=== PATIENT | female | born 1990 | race Caucasian/White ===

== ENCOUNTER 2020-08-20 16:24 | Outpatient (REF) | payer OTHER, SELFPAY | END 2020-08-20 16:25 | disposition home or self-care (01) | LOC: HO.LNP 16:24 | PROVIDERS: Visit Provider Hospitalist | DX: R30.0 Dysuria (principal) | CPT/HCPCS: 87086 ==

== ENCOUNTER 2021-04-30 12:46 | Outpatient (REF) | payer OTHER, SELFPAY | END 2021-04-30 12:47 | disposition home or self-care (01) | LOC: HO.LNP 12:46 | PROVIDERS: Visit Provider Physician Assistant Medical | DX: R30.0 Dysuria (principal) | CPT/HCPCS: 87086 ==

== ENCOUNTER 2021-05-01 11:12 | Outpatient (REF) | payer OTHER, SELFPAY | END 2021-05-01 11:13 | disposition home or self-care (01) | LOC: HO.LNP 11:12 | PROVIDERS: Visit Provider Physician Assistant Medical | DX: Z13.89 Encounter for screening for other disorder (principal) ==

== ENCOUNTER 2021-07-02 11:31 | Outpatient (REF) | payer OTHER, SELFPAY ==
[2021-07-02 13:49] LABS: MANUAL DIFF FLAG NO
[2021-07-02 13:53] LABS: Basophils Percent Auto 0.5 % (0-2); Eosinophils Absolute Auto 0.1 X10*3/uL (0.0-0.4); Eosinophils Percent Auto 2.3 % (0-4); Hematocrit 39.2 % (37.0-47.0); Hemoglobin 12.6 g/dl (12.0-16.0); Imm Gran Abs Auto 0.01 X10*3/uL (0.00-0.03); Imm Gran Pct Auto 0.2 % (0.0-0.4); Lymphocytes Absolute Auto 1.6 X10*3/uL (1.2-4.9); Lymphocytes Percent Auto 25.9 % (20-40); Mean Corpuscular HGB Conc 32.1 g/dl (31.0-35.0); Mean Corpuscular Volume 90.3 fL (80.0-98.0); Mean Platelet Volume 10.9 fL (9.4-12.3); Monocytes Absolute Auto 0.4 X10*3/uL (0.1-1.2); Monocytes Percent Auto 6.3 % (2-11); Neutrophils Percent Auto 64.8 % (45-73); Platelet Count 252 X10*3/uL (160-400); Red Blood Count 4.34 X10*6/uL (4.20-5.50); Red Cell Distribution Width 12.6 % (11.0-16.0); White Blood Count 6.2 X10*3/uL (4.8-10.8)
[2021-07-02 14:20] LABS: Alanine Aminotransferase 8 U/L (0-31); Albumin Level 4.4 g/dL (3.5-5.0); Alkaline Phosphatase 35 U/L (39-117); Anion Gap 13 (12-20); Aspartate Amino Transferase 17 U/L (5-31); Bilirubin Total 0.5 mg/dL (0.0-1.0); Blood Urea Nitrogen 8 mg/dL (9-16); Calcium 9.7 mg/dL (8.4-10.2); Carbon Dioxide 25 mmol/L (22-29); Chloride 103 mmol/L (96-108); Cholesterol 222 mg/dL; Estimated Glomerular Filt Rate > 60; Glucose Fasting 92 mg/dL (60-99); HDL Cholesterol 63 mg/dL; LDL Cholesterol Calculated 129 mg/dl; Potassium 4.1 mmol/L (3.3-5.1); Sodium 137 mmol/L (135-145); Total Protein 7.2 g/dL (6.5-8.0); Triglycerides 151 mg/dL
[2021-07-02 14:28] LABS: TSH reflex Free T4 2.96 uIU/mL (0.32-4.0)
== END 2021-07-02 11:32 | disposition home or self-care (01) ==
LOC: HO.HMGCLDS 11:31
PROVIDERS: Visit Provider Internal Medicine
DX: F32.2 Major depressive disorder, single episode, severe without psychotic features (principal); F41.1 Generalized anxiety disorder; R30.0 Dysuria; R35.0 Frequency of micturition
CPT/HCPCS: 36415; 80053; 80061; 84443; 85025

== ENCOUNTER 2021-07-08 21:07 | Emergency (ER) | payer OTHER, SELFPAY ==
[2021-07-08 21:20] VITALS: BP 167/98; PULSE 88; RESP 16; TEMP 36.7; O2SAT 99; BMI 23.7
--- NOTE | 2021-07-08 22:32 | ED_ITS ---
HPI - Female Genitourinary General Chief complaint: Urogenital-Female Stated complaint: ? bladder hernia Time Seen by Provider: 07/08/21 22:32 History of Present Illness HPI Narrative: Patient complains of frequent urge to urinate and a feel like her bladder cannot empty for many weeks and multiple visits to her doctor and previous treatments with Bactrim and Macrobid, her doctor recently started Related Data Previous Rx's Medication Instructions Recorded lamotrigine 50 mg tablet,extended 25 mg PO DAILY 30 Days #30 tab 07/02/21 release 24 hr tolterodine 2 mg tablet (Detrol) 2 mg PO BEDTIME 30 Days #30 tab 07/02/21 Allergies Allergy/AdvReac Type Severity Reaction Status Date / Time No Known Allergies Allergy Verified 07/08/21 21:25 [No Known Allergies*] Review of Systems Verdana 4l Review of Systems: Verdana 4d Verdana 4d Positives are constant feeling of need to void for several months negatives are no fever no chills no dizziness no weakness no loss of appetite no abdominal pain no nausea vomiting or diarrhea no blood in the urine no diarrhea no back painpain no rash no leg swelling Yes all other systems are reviewed and are negative PMFSH Past Medical History Source: nursing notes reviewed Medical History Major depressive disorder, severe Surgical History No pertinent past surgical history Family History Family History Father Depression Mother History of blood clots Maternal Grandmother No problems noted. Maternal Grandfather Diabetes mellitus CVD (cardiovascular disease) Paternal Grandmother No problems noted. 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 Physical Exam Verdana 4l Vital Signs: Verdana 4d Verdana 4d Vital Signs: Verdana 4d Verdana 4Bd Last Vital Signs Verdana 4d Medical Esthetician New 4d Medical Esthetician New 4d Temp 98.1 F 07/08/21 21:20 Medical Esthetician New 4d Pulse 88 07/08/21 21:20 Medical Esthetician New 4d Resp 16 07/08/21 21:20 BP 167/98 H 07/08/21 21:20 Pulse Ox 99 07/08/21 21:20 BMI result Body Mass Index 23.7 General appearance no acute distress The eyes no redness or discharge The pharynx no redness swelling or exudate, well hydrated Neck is supple Respiratory no distress Abdomen is soft and nontender The back no CVA tenderness The extremities full range of motion x4 Course Course Course Narrative: Patient was started on Detrol 3 days ago for these symptoms which have been going on for some time and have been evaluated by primary doctor who did refer to urologist She comes today as the symptoms continue unchanged She did not want a urinalysis as she said it is was just done a couple days ago and nothing is different and she would not provide a urine sample We did a postvoid residual as she constantly feels like she has to urinate and it was 32 mL so no evidence of urinary retention This was discussed with the patient that there is no additional acute treatment we could provide now she is advised she could return any time if she wants to provide a urinalysis to confirm that no infection has developed in the last few days and right now she wanted to go home so she was discharged, well-appearing and not in any acute distress Discharge Plan Discharge Clinical Impression: Dysuria Patient Disposition: Home, Self-Care Additional Instructions: Which checked to see if you are retaining urine and you were not retaining urine, the test was normal You recently checked for a urine infection and did not want us to repeat that here today so we did not check a urinalysis today Her doctor started Detrol which is a medicine that is used for bladder symptoms and hopefully it will be helpful Follow with urologist as referred by your doctor Return any time if worse Prescriptions: No Action lamotrigine 50 mg tablet extended release 24hr 25 mg PO DAILY 30 Days Qty: 30 0RF Rx Instructions: Half a tablet for 3 days and then full tablet tolterodine [Detrol] 2 mg tablet 2 mg PO BEDTIME 30 Days Qty: 30 0RF Interventions: ED Discharge Assessment Last Done: 07/08/21 23:37
== END 2021-07-08 23:40 | disposition home or self-care (01) ==
PROVIDERS: Emergency Provider Internal Medicine; PCP Internal Medicine
DX: R30.0 Dysuria (principal)
CPT/HCPCS: 51798; 99283; 99284

== ENCOUNTER 2021-08-22 13:14 | Outpatient (REF) | payer OTHER, SELFPAY ==
[2021-08-23 09:45] LABS: BV Int Neg Control Negative (Negative); BV Int Pos Control Positive (Positive)
[2021-08-23 09:47] LABS: CT PCR NOT DETECTED (Not Detect.); NG PCR NOT DETECTED (Not Detect.)
[2021-08-24 16:01] LABS: HPV mRNA E6/E7 rflx Not Detected (Not Detected)
== END 2021-08-22 13:15 | disposition home or self-care (01) ==
LOC: HO.LAB 13:14
PROVIDERS: Visit Provider Advanced Practice Midwife
DX: Z12.4 Encounter for screening for malignant neoplasm of cervix (principal); Z11.51 Encounter for screening for human papillomavirus (HPV); R35.0 Frequency of micturition; Z20.2 Contact with and (suspected) exposure to infections with a predominantly sexual mode of transmission
CPT/HCPCS: 87480; 87491; 87510; 87591; 87624; 87660; 88142

== ENCOUNTER 2022-09-16 11:25 | Outpatient (REF) | payer OTHER, SELFPAY ==
[2022-09-16 13:53] LABS: MANUAL DIFF FLAG NO
[2022-09-16 14:06] LABS: Basophils Percent Auto 0.3 % (0-2); Eosinophils Absolute Auto 0.1 X10*3/uL (0.0-0.4); Eosinophils Percent Auto 1.6 % (0-4); Hematocrit 40.7 % (37.0-47.0); Hemoglobin 13.4 g/dl (12.0-16.0); Imm Gran Abs Auto 0.04 X10*3/uL (0.00-0.03); Imm Gran Pct Auto 0.5 % (0.0-0.4); Lymphocytes Percent Auto 23.5 % (20-40); Mean Corpuscular HGB Conc 32.9 g/dl (31.0-35.0); Mean Corpuscular Hemoglobin 30.4 pg (27.0-33.0); Mean Corpuscular Volume 92.3 fL (80.0-98.0); Mean Platelet Volume 10.5 fL (9.4-12.3); Monocytes Absolute Auto 0.5 X10*3/uL (0.1-1.2); Monocytes Percent Auto 5.6 % (2-11); Neutrophils Absolute Auto 5.9 x10*3/uL (2.0-8.3); Neutrophils Percent Auto 68.5 % (45-73); Platelet Count 245 X10*3/uL (160-400); Red Blood Count 4.41 X10*6/uL (4.20-5.50); Red Cell Distribution Width 13.8 % (11.0-16.0); White Blood Count 8.6 X10*3/uL (4.8-10.8)
[2022-09-16 14:08] LABS: Appearance Urine Cloudy; Color Urine Yellow; Glucose Urine UA Negative (Negative); Leukocyte Esterase Urine Large (3+) (Negative); Nitrite Urine Negative (Negative); UMIC TRIGGER UACC YES; Urine Blood Negative (Negative); Urine Ketones Negative (Negative); Urine Protein Negative (Neg-Trace)
[2022-09-16 14:13] LABS: Bacteria Urine 2+ (None Seen); Hyaline Casts Urine 0-2 /LPF (0-2); UACC Culture Trigger YES; WBC Urine 21-50 /HPF (0-5)
[2022-09-16 14:40] LABS: Alanine Aminotransferase 32 U/L (0-31); Albumin Level 4.6 g/dL (3.5-5.0); Alkaline Phosphatase 47 U/L (39-117); Anion Gap 16 (12-20); Aspartate Amino Transferase 56 U/L (5-31); Bilirubin Total 0.7 mg/dL (0.0-1.0); Blood Urea Nitrogen 8 mg/dL (9-16); Calcium 9.5 mg/dL (8.4-10.2); Carbon Dioxide 26 mmol/L (22-29); Chloride 101 mmol/L (96-108); Cholesterol 218 mg/dL; Estimated Glomerular Filt Rate > 60; Glucose Fasting 94 mg/dL (60-99); HDL Cholesterol 83 mg/dL; LDL Cholesterol Calculated 97 mg/dl; Potassium 3.7 mmol/L (3.3-5.1); Sodium 139 mmol/L (135-145); Total Protein 6.9 g/dL (6.5-8.0); Triglycerides 190 mg/dL
[2022-09-16 14:59] LABS: TSH reflex Free T4 2.05 uIU/mL (0.32-4.0)
== END 2022-09-16 11:26 | disposition home or self-care (01) ==
LOC: HO.HMGCLDS 11:25
PROVIDERS: PCP Internal Medicine; Visit Provider Internal Medicine
DX: Z00.01 Encounter for general adult medical examination with abnormal findings (principal); H60.91 Unspecified otitis externa, right ear; F41.1 Generalized anxiety disorder; F32.2 Major depressive disorder, single episode, severe without psychotic features
CPT/HCPCS: 36415; 80053; 80061; 81001; 84443; 85025; 87086

== ENCOUNTER 2023-02-10 13:44 | Outpatient (AMB) | payer OTHER, SELFPAY ==
[2023-02-10 13:48] VITALS: BP 130/70; PULSE 111; O2SAT 97; BMI 20.4
--- NOTE | 2023-02-10 13:48 | MHC.PC.OV ---
Vital Signs 02/10/23 13:48 Height 5 ft 6 in Weight 126 lb 8 oz BMI 20.4 BP 130/70 Blood Pressure Location Rt brachial Position Sitting Pulse 111 H Pulse Source Pulse Oximeter Pulse Oximetry (%) 97 Oxygen Delivery Method Room Air Intake Visit Reasons: Med Follow Up~ Allergies No Known Allergies [No Known Allergies*] Allergy (Verified 02/10/23 13:49) Medication List - Last Reconciled 02/10/23 by Casey Spencer MD buprenorphine-naloxone 8-2 mg 10 mg sublingual DAILY buspirone 5 mg PO DAILY PRN 90 days lamotrigine 50 mg (2 x 25 mg) PO DAILY 90 days mirabegron ER (Myrbetriq) 50 mg PO DAILY Tobacco use date assessed: 02/10/23 Dental Screening Dental Screen Date: 02/10/23 Did you have a dental visit in the last 12 months?: Yes Did you have a dental problem in the last 6 months where you did not have access to dental care?: No Was dental information given to patient?: No HPI Med Follow Up~ HPI Details Patient is a 32-year-old female came in today for follow-up appointment Patient is currently taking lamotrigine 50 mg a day, for unstable mood and possible bipolar disorder And buspirone 5 mg for anxiety She is still waiting to see the psychiatrist Last time she saw me was September of this year at that time patient had appointment in a week She tells me that the doctor and leaving and now she is back on a list. She is doing better since she was started on lamotrigine however patient is requesting to increase the dose I am increasing it to 100 mg currently she is taking 50 mg BuSpar increased to 10 mg once a day as needed Patient continued to drink too much alcohol she is aware that I have given her written material on alcoholic toxic effects And if she needs assistance she will let me know she is trying to cut down. Follow-up 3 months [facility] Medical History Major depressive disorder, severe Surgical History No pertinent past surgical history Family History Father Depression Mother History of blood clots Maternal Grandmother No problems noted. Maternal Grandfather Diabetes mellitus CVD (cardiovascular disease) Paternal Grandmother No problems noted. Paternal Grandfather Diabetes mellitus Social History Housing: House Alcohol intake: current Alcohol intake frequency: 0-2 drinks per day Alcohol type: other Patient Tobacco Use Status: Former Tobacco user Years Smoked: 6 years e-Cigarette/Vaping Use: Never Used service: No Current occupational status: employed Current occupation: [employer] Gender identity: Female Cognitive needs: No Hearing needs: No Vision needs: Yes Female Reproductive History Menstrual Age of Menarche: 14 Questionnaire PHQ-9 Over the last 2 weeks, how often have you been bothered by any of the following problems? 1. Little interest or pleasure in doing things: several days 2. Feeling down, depressed, or hopeless: nearly every day 3. Trouble falling or staying asleep, or sleeping too much: not at all 4. Feeling tired or having little energy: nearly every day 5. Poor appetite or overeating: not at all 6. Feeling bad about yourself - or that you are a failure or have let yourself or your family down: not at all 7. Trouble concentrating on things, such as reading the newspaper or watching television: nearly every day 8. Moving or speaking so slowly that other people could have noticed. Or the opposite - being so fidgety or restless that you have been moving around a lot more than usual: not at all 9. Thoughts that you would be better off or of hurting yourself in some way: not at all Total score: 10 Depression Screening Interpretation: Positive 18463 - PHQ-9 Billing: Yes Source: Developed by Drs. Bishop Johnson, Kinsey Patel, Jaspreet Garcia and colleagues, with an educational lloyd from [employer]. Thrive Questionnaire Date Thrive assessed: 02/10/23 I am a: Patient What is your living situation today?: I have a steady place to live Within the past 12 months, did the food you bought not last and you didn't have the money to get more?: Never true Within the past 12 months, did you worry whether your food would run out before you got money to buy more?: Never true Do you have trouble paying for medicines?: No Do you have trouble getting transportation to medical appointments?: No Do you have trouble paying your heating and electricity bill?: No Do you have trouble taking care of your child, family member or friend?: No Do you have trouble with day-to-day activities such as bathing, preparing meals, shopping, managing finances, etc.?: No Are you currently unemployed and looking for a job?: No Are you interested in more education?: No AUDIT C Alcohol Use Questionnaire (AUDIT-C) 1. How often do you have a drink containing alcohol?: 2-3 times a week 2. How many drinks containing alcohol do you have on a typical day when you are drinking?: 3 or 4 3. How often do you have six or more drinks on one occasion?: Never Total Score: 4 Score Reviewed/Action Taken: Yes FLORENCIA-7 AMB Questionnaire FLORENCIA-7 Date FLORENCIA - 7 assessed: 02/10/23 Feeling nervous, anxious, or on edge: 3 = Nearly every day Not being able to stop or control worryin = More than half the days Worrying too much about different things: 2 = More than half the days Trouble relaxin = More than half the days Being so restless that it is hard to sit still: 0 = Not at all Becoming easily annoyed or irritable: 2 = More than half the days Feeling afraid as if something awful might happen: 2 = More than half the days Total FLORENCIA-7 score (0-4 normal; 5-9 mild; 10-14 moderate; 15-21 severe): 13 Source: Developed by Drs. Bishop Johnson, Kinsey Patel, Jaspreet Garcia and colleagues, with an educational lloyd from [employer]. FLORENCIA-7 Assessment Billing FLORENCIA-7 Assessment Tool: FLORENCIA-7 Assessment 82940 Review of Systems Const Denies chills and Denies fever(s) ENT Denies epistaxis and Denies nasal discharge Card Denies chest pain Resp Denies chest congestion, Denies cough and Denies hemoptysis GI Denies diarrhea and Denies nausea Skin/Breast Denies rash Neuro Reports no additional complaints Psych Reports no additional complaints Endo Reports no additional complaints Physical exam (Primary Care) Vital Signs: Last Vital Signs Pulse 111 H 02/10/23 13:48 BP 130/70 02/10/23 13:48 Pulse Ox 97 02/10/23 13:48 Oxygen Delivery Method Room Air 02/10/23 13:48 BMI result Body Mass Index 20.4 Tobacco/Smoking Status: Tobacco use Status Tobacco use date assessed 02/10/23 02/10/23 13:52 Patient Tobacco Use Status Former Tobacco user 02/10/23 13:52 e-Cigarette/Vaping Use Never Used 02/10/23 13:52 PHQ-9: PHQ-9 Score PHQ-9: Total score 10 02/10/23 14:07 Depression Screening Interpretation: Positive Thrive Assessment: Date of Thrive Assessment Date Thrive assessed 02/10/23 02/10/23 14:04 Const General: cooperative, comfortable and no acute distress Orientation/consciousness: patient oriented x3 HENMT Head: Yes normocephalic Eyes General: appearance normal, both eyes and all related structures Neck Neck: Yes supple Resp Effort & Inspection: normal respiratory effort, no cough and no stridor Cardio Rhythm: regular rhythm Heart sounds: S1 normal heart sound present and S2 normal heart sound present Skin General skin exam: turgor normal Neuro General: patient oriented x3, tone normal and moves all extremities Extrem Right lower extremity: no edema Left lower extremity: no edema Assessment and Plan Assessment & Plan (1) Anxiety, generalized: Code(s): F41.1 - Generalized anxiety disorder (2) Major depressive disorder, severe: Code(s): F32.2 - Major depressive disorder, single episode, severe without psychotic features (3) Labile mood: Code(s): R45.86 - Emotional lability (4) Alcoholism: Code(s): F10.20 - Alcohol dependence, uncomplicated Plan Patient is a 32-year-old female came in today for follow-up appointment Patient is currently taking lamotrigine 50 mg a day, for unstable mood and possible bipolar disorder And buspirone 5 mg for anxiety She is still waiting to see the psychiatrist Last time she saw me was September of this year at that time patient had appointment in a week She tells me that the doctor and leaving and now she is back on a list. She is doing better since she was started on lamotrigine however patient is requesting to increase the dose I am increasing it to 100 mg currently she is taking 50 mg BuSpar increased to 10 mg once a day as needed Patient continued to drink too much alcohol she is aware that I have given her written material on alcoholic toxic effects And if she needs assistance she will let me know she is trying to cut down. Follow-up 3 months Medications: Changed From buspirone 5 mg PO DAILY 90 days PRN 90 tabs 1RF anxiety To buspirone 10 mg PO DAILY PRN 90 tabs 0RF anxiety 90 days From lamotrigine 50 mg (2 x 25 mg) PO DAILY 90 days 180 tabs 0RF To lamotrigine 100 mg PO DAILY 90 tabs 0RF 90 days Coding Level of Care Code Est Pt Level 4 (55443) Diagnoses Anxiety, generalized F41.1 Major depressive disorder, severe F32.2 Labile mood R45.86 Alcoholism F10.20 Additional Codes FLORENCIA-7 Assessment Billing - FLORENCIA-7 Assessment Tool: FLORENCIA-7 Assessment [id number] ([id number])
== END 2023-02-10 15:11 | disposition home or self-care (01) ==
PROVIDERS: PCP Internal Medicine; Visit Provider Internal Medicine
DX: F41.1 Generalized anxiety disorder (principal); F32.2 Major depressive disorder, single episode, severe without psychotic features; R45.86 Emotional lability; F10.20 Alcohol dependence, uncomplicated
CPT/HCPCS: 96127; 99214

== ENCOUNTER 2023-05-19 09:29 | Outpatient (AMB) | payer OTHER, SELFPAY ==
--- NOTE | 2023-05-19 09:26 | MHC.PC.OV ---
Vital Signs 05/19/23 09:26 Height 5 ft 6 in Intake Visit Reasons: 3 month fu Iphone [phone] Allergies No Known Allergies [No Known Allergies*] Allergy (Verified 05/19/23 09:26) Medication List - Last Reconciled 05/19/23 by Casey Spencer MD buprenorphine-naloxone 8-2 mg 10 mg sublingual DAILY buspirone 10 mg PO DAILY PRN 90 days lamotrigine 100 mg PO DAILY 90 days vibegron (Gemtesa) 75 mg PO DAILY Tobacco use date assessed: 05/19/23 Dental Screening Dental Screen Date: 05/19/23 Did you have a dental visit in the last 12 months?: Yes Did you have a dental problem in the last 6 months where you did not have access to dental care?: No Was dental information given to patient?: Patient has dentist HPI 3 month fu Iphone [phone] HPI Details Patient is a 32-year-old female this is a telemedicine video conference follow-up Bipolar disorder/major depression: Patient is currently taking lamotrigine 100 mg a day And buspirone 10 mg for anxiety Patient has tried to be connected with a psychiatrist but so far no luck She is doing well with this combination of medications She may continue this medication I can fill these for the patient. Last time she had labs in September her liver enzymes were slightly elevated We need to repeat labs again. Patient notified Patient has appointment in September for physical exam [facility] Medical History Major depressive disorder, severe Surgical History No pertinent past surgical history Family History Father Depression Mother History of blood clots Maternal Grandmother No problems noted. Maternal Grandfather Diabetes mellitus CVD (cardiovascular disease) Paternal Grandmother No problems noted. Paternal Grandfather Diabetes mellitus Social History Housing: House Alcohol intake: current Alcohol intake frequency: 0-2 drinks per day Alcohol type: other Patient Tobacco Use Status: Former Tobacco user Years Smoked: 6 years e-Cigarette/Vaping Use: Never Used service: No Current occupational status: employed Current occupation: [employer] Gender identity: Female Cognitive needs: No Hearing needs: No Vision needs: Yes Female Reproductive History Menstrual Age of Menarche: 14 Questionnaire Thrive Questionnaire Date Thrive assessed: 02/10/23 AUDIT C Alcohol Use Questionnaire (AUDIT-C) 1. How often do you have a drink containing alcohol?: 4 or more times a week 2. How many drinks containing alcohol do you have on a typical day when you are drinking?: 1 or 2 3. How often do you have six or more drinks on one occasion?: Never Total Score: 4 Score Reviewed/Action Taken: Yes FLORENCIA-7 AMB Questionnaire FLORENCIA-7 Date FLORENCIA - 7 assessed: 02/10/23 Source: Developed by Drs. Bishop Johnson, Kinsey Patel, Jaspreet Garcia and colleagues, with an educational lloyd from [employer]. Review of Systems Const Denies chills and Denies fever(s) ENT Denies epistaxis and Denies nasal discharge Card Denies chest pain Resp Denies chest congestion, Denies cough and Denies hemoptysis GI Denies diarrhea and Denies nausea Skin/Breast Denies rash Neuro Reports no additional complaints Psych Reports no additional complaints Endo Reports no additional complaints Physical exam (Primary Care) Tobacco/Smoking Status: Tobacco use Status Tobacco use date assessed 05/19/23 05/19/23 09:28 Patient Tobacco Use Status Former Tobacco user 05/19/23 09:28 e-Cigarette/Vaping Use Never Used 05/19/23 09:28 Thrive Assessment: Date of Thrive Assessment Date Thrive assessed 02/10/23 05/19/23 09:28 Telehealth Telehealth Location of provider rendering services: practice address Location of patient: address on file Patient Identification confirmed using: Name, : Yes Telehealth method: video Patient verbally consented to treatment: Yes Patient verbally consented to billing insurance company: Yes Patient informed of any privacy concerns related to visit: Yes Minutes spent on Phone/Video with Pt.: 14 Assessment and Plan Assessment & Plan (1) Major depressive disorder, severe: Code(s): F32.2 - Major depressive disorder, single episode, severe without psychotic features (2) Vitamin D deficiency: Code(s): E55.9 - Vitamin D deficiency, unspecified (3) Anxiety, generalized: Code(s): F41.1 - Generalized anxiety disorder (4) LFT elevation: Code(s): R79.89 - Other specified abnormal findings of blood chemistry Plan Patient is a 32-year-old female this is a telemedicine video conference follow-up Bipolar disorder/major depression: Patient is currently taking lamotrigine 100 mg a day And buspirone 10 mg for anxiety Patient has tried to be connected with a psychiatrist but so far no luck She is doing well with this combination of medications She may continue this medication I can fill these for the patient. Last time she had labs in September her liver enzymes were slightly elevated We need to repeat labs again. Patient notified Patient has appointment in September for physical exam Orders: Orders Comprehensive Met. Panel Today E55.9 - Vitamin D deficiency, unspecified, F32.2 - Major depressive disorder, single episode, severe without psychotic features, F41.1 - Generalized anxiety disorder, R79.89 - Other specified abnormal findings of blood chemistry Complete Blood Count Auto Diff Today E55.9 - Vitamin D deficiency, unspecified, F32.2 - Major depressive disorder, single episode, severe without psychotic features, F41.1 - Generalized anxiety disorder LDL Cholesterol Direct Today E55.9 - Vitamin D deficiency, unspecified, F32.2 - Major depressive disorder, single episode, severe without psychotic features, F41.1 - Generalized anxiety disorder TSH reflex Free T4 Today E55.9 - Vitamin D deficiency, unspecified, F32.2 - Major depressive disorder, single episode, severe without psychotic features, F41.1 - Generalized anxiety disorder Coding Level of Care Code Tele Est Pt Level 4 (12325) Diagnoses Major depressive disorder, severe F32.2 Vitamin D deficiency E55.9 Anxiety, generalized F41.1 LFT elevation R79.89
== END 2023-05-19 12:38 | disposition home or self-care (01) ==
LOC: HO.HMGC 09:30
PROVIDERS: PCP Internal Medicine; Visit Provider Internal Medicine
DX: F32.2 Major depressive disorder, single episode, severe without psychotic features (principal); E55.9 Vitamin D deficiency, unspecified; F41.1 Generalized anxiety disorder; R79.89 Other specified abnormal findings of blood chemistry
CPT/HCPCS: 99214

== ENCOUNTER 2023-09-15 10:06 | Outpatient (AMB) | payer OTHER, SELFPAY ==
[2023-09-15 11:24] VITALS: BP 110/80; PULSE 105; TEMP 36.8; O2SAT 98; BMI 21.1
--- NOTE | 2023-09-15 11:24 | AM.OFFWIN_ITS ---
Intake Vital Signs 09/15/23 11:24 Height 5 ft 6 in Weight 131 lb BMI 21.1 BP 110/80 Blood Pressure Location Lt brachial Position Sitting Pulse 105 H Pulse Source Pulse Oximeter Temp 98.3 F Temp Source Temporal Artery Scan Pulse Oximetry (%) 98 Intake Visit Reasons: EP cough congestion ear pain day 4 [phone] Intake Note: pt is here today for cough congestion ear pain started 4 days ago Patient Tobacco Use Status: Former Tobacco user Allergies No Known Allergies [No Known Allergies*] Allergy (Verified 09/15/23 12:20) Medication List - Last Reconciled 09/15/23 by BRENDA Mancuso buprenorphine-naloxone 8-2 mg 10 mg sublingual DAILY buspirone 10 mg PO DAILY PRN 90 days lamotrigine 100 mg PO DAILY 90 days vibegron (Gemtesa) 75 mg PO DAILY Do you need a note to return to daycare/school/sports/work: Yes HPI HPI Comments History of Present Illness Details Patient is a 32-year-old female in today for sick visit. Patient states that over the past 4 days she has developed symptoms of sore throat, headache, ear fullness, sinus tenderness, cough. Over the past day the patient states she has been expectorating green mucus. Patient has use yshu-gov-kvnbing ibuprofen with little effect. Patient states that her at home has similar symptoms. Denies chest pain, shortness a breath, numbness, nausea, vomiting, diarrhea. [facility] Medical History Major depressive disorder, severe Surgical History No pertinent past surgical history Family History Father Depression Mother History of blood clots Maternal Grandmother No problems noted. Maternal Grandfather Diabetes mellitus CVD (cardiovascular disease) Paternal Grandmother No problems noted. Paternal Grandfather Diabetes mellitus Social History Housing: House Alcohol intake: current Alcohol intake frequency: 0-2 drinks per day Alcohol type: other Patient Tobacco Use Status: Former Tobacco user Years Smoked: 6 years e-Cigarette/Vaping Use: Never Used service: No Current occupational status: employed Current occupation: [employer] Gender identity: Female Cognitive needs: No Hearing needs: No Vision needs: Yes Female Reproductive History Menstrual Age of Menarche: 14 Review of Systems Const All systems reviewed & are unremarkable except as noted in HPI and below Physical Exam Vital Signs: Last Vital Signs Temp 98.3 F 09/15/23 11:24 Pulse 105 H 09/15/23 11:24 BP 110/80 09/15/23 11:24 Pulse Ox 98 09/15/23 11:24 BMI result Body Mass Index 21.1 Const Other: Appearance: Alert.? Oriented X3.? No acute distress.? Head: Normocephalic. Eyes: Pupils equal, round and reactive to light.? ENT: Pharynx erythema and cobblestone. No exudate. TM inact and pearly loya. Neck: Normal inspection.? Neck supple.? CVS: Normal heart rate and rhythm.? Pulses normal.? Respiratory: No respiratory distress.? Breath sounds normal.? Neuro: Oriented X 3.? No motor deficit.? No sensory deficit. CN 2-12 intact Results AMB Rapid Strep AMB Rapid Strep Negative Last Edit by Branden Dejesus CMA on 09/15/23 12 :15 Assessment & Plan Assessment & Plan (1) Sinusitis: Comment: Will give patient azithromycin. Code(s): J32.9 - Chronic sinusitis, unspecified Qualifiers: Sinusitis location: unspecified location Chronicity: unspecified Qualified Code(s): J32.9 - Chronic sinusitis, unspecified Plan: Take your medications as prescribed. If you were prescribed antibiotics today, it is important that you take your medication to their entirety, do not skip any doses, do not finish them early. Follow-up with your primary care provider this week. Return to the emergency department with new or worsening symptoms. Such as fevers, chills, chest pain, shortness of breath, nausea, vomiting, dizziness, headache, vision changes, lethargy In case of emergency call 911 (2) Upper respiratory infection: Comment: Patient had in office URI in strep swab. Will give Cepacol drops for sore throat. Patient can continue to utilize oqub-jrj-vojyirb medicine for relief. Code(s): J06.9 - Acute upper respiratory infection, unspecified Qualifiers: URI type: unspecified URI Qualified Code(s): J06.9 - Acute upper respiratory infection, unspecified Plan: Follow-up with PCP Orders: Orders AMB Rapid Strep Screen Today Z13.9 - Encounter for screening, unspecified SARS-CoV2/FLU/RSV Today J06.9 - Acute upper respiratory infection, unspecified Medications: New benzocaine-menthol 15-3.6 mg (Cepacol Sore Throat (benzocaine-menthol)) 1 gavi mucous membrane Q2-4H PRN 16 ea 0RF pain azithromycin For 250 mg dose pack: take 500 mg today (day 1), then 250 mg for 4 days (days 2-5) PO 6 tabs 0RF Coding Level of Care Code Est Pt Level 3 (50646) Diagnoses Sinusitis, unspecified chronicity, unspecified location J32.9 Sinusitis location: unspecified location Chronicity: unspecified Upper respiratory tract infection, unspecified type J06.9 URI type: unspecified URI Time Spent (min) 26
== END 2023-09-15 12:24 | disposition home or self-care (01) ==
PROVIDERS: PCP Internal Medicine; Visit Provider Nurse Practitioner Primary Care
DX: J02.9 Acute pharyngitis, unspecified (principal)
CPT/HCPCS: 87880; 99213

== ENCOUNTER 2023-09-15 13:33 | Outpatient (REF) | payer OTHER, SELFPAY ==
[2023-09-15 14:34] LABS: Influenza A PCR POSITIVE (Negative); Influenza B PCR NEGATIVE (Negative); Resp Syncy Virus RNA Qual PCR NEGATIVE (Negative); SARS COV2 PCR INHOUSE NEGATIVE (Negative)
== END 2023-09-15 13:34 | disposition home or self-care (01) ==
LOC: HO.LNP 13:33
PROVIDERS: Visit Provider Nurse Practitioner Primary Care
DX: Z11.52 Encounter for screening for COVID-19 (principal); J06.9 Acute upper respiratory infection, unspecified
CPT/HCPCS: 0241U

== ENCOUNTER 2023-09-16 10:28 | Outpatient (REF) | payer OTHER, SELFPAY ==
[2023-09-16 13:36] LABS: MANUAL DIFF FLAG NO
[2023-09-16 14:38] LABS: Alanine Aminotransferase 32 U/L (0-31); Albumin Level 4.3 g/dL (3.5-5.0); Alkaline Phosphatase 49 U/L (39-117); Anion Gap 15 (12-20); Aspartate Amino Transferase 45 U/L (5-31); Bilirubin Total 0.4 mg/dL (0.0-1.0); Blood Urea Nitrogen 8 mg/dL (9-16); Calcium 8.9 mg/dL (8.4-10.2); Carbon Dioxide 30 mmol/L (22-29); Chloride 97 mmol/L (96-108); Estimated Glomerular Filt Rate > 60; Glucose Random 107 mg/dL (60-115); Potassium 3.4 mmol/L (3.3-5.1); Sodium 139 mmol/L (135-145); Total Protein 7.4 g/dL (6.5-8.0)
[2023-09-16 14:39] LABS: TSH reflex Free T4 0.91 uIU/mL (0.32-4.0)
[2023-09-16 14:47] LABS: Basophils Percent Auto 0.2 % (0-2); Eosinophils Percent Auto 0.1 % (0-4); Hematocrit 42.1 % (37.0-47.0); Hemoglobin 13.9 g/dl (12.0-16.0); Imm Gran Abs Auto 0.04 X10*3/uL (0.00-0.03); Imm Gran Pct Auto 0.4 % (0.0-0.4); Lymphocytes Absolute Auto 1.5 X10*3/uL (1.2-4.9); Lymphocytes Percent Auto 15.3 % (20-40); Mean Corpuscular Hemoglobin 30.3 pg (27.0-33.0); Mean Corpuscular Volume 91.7 fL (80.0-98.0); Monocytes Absolute Auto 1.1 X10*3/uL (0.1-1.2); Monocytes Percent Auto 10.4 % (2-11); Neutrophils Absolute Auto 7.4 x10*3/uL (2.0-8.3); Neutrophils Percent Auto 73.6 % (45-73); Red Blood Count 4.59 X10*6/uL (4.20-5.50); Red Cell Distribution Width 14.1 % (11.0-16.0); White Blood Count 10.1 X10*3/uL (4.8-10.8)
[2023-09-16 15:18] LABS: Mean Platelet Volume 11.3 fL (9.4-12.3); Platelet Count 110 X10*3/uL (160-400)
[2023-09-17 09:47] LABS: LDL Cholesterol Direct 74 mg/dL (<100)
== END 2023-09-16 10:29 | disposition home or self-care (01) ==
LOC: HO.HMGCLDS 10:28
PROVIDERS: PCP Internal Medicine; Visit Provider Internal Medicine
DX: F32.2 Major depressive disorder, single episode, severe without psychotic features (principal); E55.9 Vitamin D deficiency, unspecified; F41.1 Generalized anxiety disorder; R79.89 Other specified abnormal findings of blood chemistry
CPT/HCPCS: 36415; 80053; 83721; 84443; 85025

== ENCOUNTER 2023-09-18 10:54 | Outpatient (AMB) | payer OTHER, SELFPAY ==
[2023-09-18 10:56] VITALS: BP 110/78; PULSE 106; O2SAT 99; BMI 21.0
--- NOTE | 2023-09-18 10:56 | A.OFFPC_ITS ---
Vital Signs 09/18/23 10:56 Height 5 ft 6 in Weight 130 lb 4 oz BMI 21.0 BP 110/78 Blood Pressure Location Rt brachial Position Sitting Pulse 106 H Pulse Source Pulse Oximeter Pulse Oximetry (%) 99 Oxygen Delivery Method Room Air Intake Visit Reasons: PE Allergies No Known Allergies [No Known Allergies*] Allergy (Verified 09/18/23 10:57) Medication List - Last Reconciled 09/18/23 by Casey Spencer MD azithromycin For 250 mg dose pack: take 500 mg today (day 1), then 250 mg for 4 days (days 2-5) PO buprenorphine-naloxone 8-2 mg 10 mg sublingual DAILY buspirone 10 mg PO DAILY PRN 90 days lamotrigine 100 mg PO DAILY 90 days vibegron (Gemtesa) 75 mg PO DAILY Tobacco use date assessed: 09/18/23 Dental Screening Dental Screen Date: 09/18/23 Did you have a dental visit in the last 12 months?: Yes Did you have a dental problem in the last 6 months where you did not have access to dental care?: No Was dental information given to patient?: Patient has dentist HPI PE HPI Details Patient is a 32-year-old female came in today for physical examination Patient have a strong family history of alcohol abuse, she is currently seeing a therapist which is helping her Continue to drink vodka almost daily. 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 Maternal Grandfather Diabetes mellitus CVD (cardiovascular disease) Paternal Grandmother No problems noted. Paternal Grandfather Diabetes mellitus Social History Housing: House Alcohol intake: current Alcohol intake frequency: 0-2 drinks per day Alcohol type: other Patient Tobacco Use Status: Former Tobacco user Years Smoked: 6 years e-Cigarette/Vaping Use: Never Used service: No Current occupational status: employed Current occupation: [employer] Gender identity: Female Cognitive needs: No Hearing needs: No Vision needs: Yes Female Reproductive History Menstrual Age of Menarche: 14 Questionnaire PHQ-9 Over the last 2 weeks, how often have you been bothered by any of the following problems? 1. Little interest or pleasure in doing things: several days 2. Feeling down, depressed, or hopeless: several days 3. Trouble falling or staying asleep, or sleeping too much: more than half the days 4. Feeling tired or having little energy: not at all 5. Poor appetite or overeating: several days 6. Feeling bad about yourself - or that you are a failure or have let yourself or your family down: several days 7. Trouble concentrating on things, such as reading the newspaper or watching television: more than half the days 8. Moving or speaking so slowly that other people could have noticed. Or the opposite - being so fidgety or restless that you have been moving around a lot more than usual: several days 9. Thoughts that you would be better off or of hurting yourself in some way: not at all Total score: 9 Depression Screening Interpretation: Positive Depression Screening Follow-up: Existing condition and In treatment Depression Screening Done: Yes 98034 - PHQ-9 Billing: Yes Source: Developed by Drs. Bishop Johnson, Kinsey Patel, Jaspreet Garcia and colleagues, with an educational lloyd from [employer]. Thrive Questionnaire Date Thrive assessed: 09/18/23 I am a: Patient What is your living situation today?: I have a steady place to live Within the past 12 months, did the food you bought not last and you didn't have the money to get more?: Never true Within the past 12 months, did you worry whether your food would run out before you got money to buy more?: Never true Do you have trouble paying for medicines?: No Do you have trouble getting transportation to medical appointments?: No Do you have trouble paying your heating and electricity bill?: No Do you have trouble taking care of your child, family member or friend?: No Do you have trouble with day-to-day activities such as bathing, preparing meals, shopping, managing finances, etc.?: No Are you currently unemployed and looking for a job?: No Are you interested in more education?: No Please select the resources that you would like help with: None Currently or been in a relationship where the following occur: no concerns reported THRIVE Score: 0 AUDIT C Alcohol Use Questionnaire (AUDIT-C) 1. How often do you have a drink containing alcohol?: 4 or more times a week 2. How many drinks containing alcohol do you have on a typical day when you are drinking?: 3 or 4 3. How often do you have six or more drinks on one occasion?: Weekly Total Score: 8 Score Reviewed/Action Taken: Yes FLORENCIA-7 AMB Questionnaire FLORENCIA-7 Date FLORENCIA - 7 assessed: 09/18/23 Feeling nervous, anxious, or on edge: 1 = Several days Not being able to stop or control worryin = Several days Worrying too much about different things: 2 = More than half the days Trouble relaxin = More than half the days Being so restless that it is hard to sit still: 1 = Several days Becoming easily annoyed or irritable: 2 = More than half the days Feeling afraid as if something awful might happen: 0 = Not at all Total FLORENCIA-7 score (0-4 normal; 5-9 mild; 10-14 moderate; 15-21 severe): 9 Source: Developed by Drs. Bishop Johnson, Kinsey Patel, Jaspreet Garcia and colleagues, with an educational lloyd from [employer]. FLORENCIA-7 Assessment Billing FLORENCIA-7 Assessment Tool: FLORENCIA-7 Assessment 99223 Review of Systems Const Denies chills, Denies fever(s) and Denies headache(s) Eyes Denies blurry vision ENT Denies headache(s), Denies nasal discharge, Denies nasal obstruction, Denies odynophagia and Denies sinus pain Card Denies chest pain at rest and Denies chest pain with activity Resp Denies cough and Denies hemoptysis GI Denies diarrhea, Denies odynophagia, Denies vomiting and Denies hematemesis Reports as per HPI Musc Denies abnormal gait Skin/Breast Reports as per HPI Neuro Denies Neuro-related abnormal movements, Denies Abnormal speech present, Denies abnormal gait, Denies headache(s) and Denies Sensory deficit (Neuro) Psych Denies mood swings and Denies paranoia Endo Reports as per HPI Jimmy/Lymph Reports as per HPI Aller/Immun Reports as per HPI Physical exam (Primary Care) Vital Signs: Last Vital Signs Pulse 106 H 09/18/23 10:56 BP 110/78 09/18/23 10:56 Pulse Ox 99 09/18/23 10:56 Oxygen Delivery Method Room Air 09/18/23 10:56 BMI result Body Mass Index 21.0 Tobacco/Smoking Status: Tobacco use Status Tobacco use date assessed 09/18/23 09/18/23 10:58 Patient Tobacco Use Status Former Tobacco user 09/18/23 10:58 e-Cigarette/Vaping Use Never Used 09/18/23 10:58 PHQ-9: PHQ-9 Score PHQ-9: Total score 9 09/18/23 11:09 Depression Screening Interpretation: Positive Depression Screening Follow-up: Existing condition and In treatment Thrive Assessment: Date of Thrive Assessment Date Thrive assessed 09/18/23 09/18/23 11:09 Currently or been in a relationship where the following occur: no concerns reported Const General: cooperative, comfortable and no acute distress Orientation/consciousness: patient oriented x3 HENMT Head: Yes normocephalic and Yes atraumatic Eyes General: appearance normal, both eyes and all related structures Pupils: Equal, round and reactive pupils present EOM: EOMs intact bilaterally Neck Neck: Yes supple and No lymphadenopathy Thyroid: Thyroid normal Lymphatic: no lymphadenopathy noted Resp Effort & Inspection: normal respiratory effort and able to speak in complete sentences Auscultation: clear to auscultation bilaterally Cardio Heart sounds: S1 normal heart sound present and S2 normal heart sound present GI Palpation (GI): Soft to palpation and nontender Auscultation: normal bowel sounds General: Yes no CVA tenderness Back/Spine/Pelvis Back: no CVA tenderness Skin General skin exam: elasticity normal and turgor normal Neuro General: patient oriented x3 and gait normal Cranial nerves: Yes Equal, round and reactive pupils present Speech: No Abnormal speech present Sensory Exam: No Sensory deficit (Neuro) Coordination: tandem gait normal and Romberg test negative Extrem General: Yes normal exam except as noted and No edema Assessment and Plan Assessment & Plan (1) Encounter for general adult medical examination with abnormal findings: Code(s): Z00.01 - Encounter for general adult medical examination with abnormal findings (2) Alcoholism: Code(s): F10.20 - Alcohol dependence, uncomplicated (3) LFT elevation: Code(s): R79.89 - Other specified abnormal findings of blood chemistry (4) Anxiety, generalized: Code(s): F41.1 - Generalized anxiety disorder (5) Major depressive disorder, severe: Code(s): F32.2 - Major depressive disorder, single episode, severe without psychotic features Plan Patient is a 32-year-old female came in today for physical examination Patient have a strong family history of alcohol abuse, she is currently seeing a therapist which is helping her Continue to drink vodka almost daily. 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, we will do a telemedicine visit Physical exam 1 year Orders: Referrals [employer] Referral Z01.419 - Encounter for gynecological examination (general) (routine) without abnormal findings Medications: Changed From buspirone 10 mg PO DAILY 90 days PRN 90 tabs 0RF anxiety To buspirone 10 mg PO TID 30 days PRN 90 tabs 2RF anxiety Discontinued azithromycin Discontinued Reason: Doctor's Order For 250 mg dose pack: take 500 mg today (day 1), then 250 mg for 4 days (days 2-5) PO 6 tabs 0RF Coding Level of Care Code Est Pt Prev Care 18-39y(14581) Diagnoses Encounter for general adult medical examination with abnormal findings Z00.01 Alcoholism F10.20 LFT elevation R79.89 Anxiety, generalized F41.1 Major depressive disorder, severe F32.2 Additional Codes FLORENCIA-7 Assessment Billing - FLORENCIA-7 Assessment Tool: FLORENCIA-7 Assessment [id number] ([id number])
== END 2023-09-18 16:38 | disposition home or self-care (01) ==
PROVIDERS: PCP Internal Medicine; Visit Provider Internal Medicine
DX: Z00.00 Encounter for general adult medical examination without abnormal findings (principal); F10.20 Alcohol dependence, uncomplicated; F32.2 Major depressive disorder, single episode, severe without psychotic features; R79.89 Other specified abnormal findings of blood chemistry; F41.1 Generalized anxiety disorder
CPT/HCPCS: 99395

== ENCOUNTER 2023-12-09 08:15 | Outpatient (AMB) | payer OTHER, SELFPAY ==
--- NOTE | 2023-12-09 08:16 | MHC.PC.OV ---
Intake Visit Reasons: [employer] F/U~[phone] Allergies No Known Allergies [No Known Allergies*] Allergy (Verified 12/09/23 08:17) Medication List - Last Reconciled 12/09/23 by Casey Spencer MD buprenorphine-naloxone 8-2 mg 10 mg sublingual DAILY buspirone 10 mg PO TID PRN 30 days lamotrigine 100 mg PO DAILY 90 days vibegron (Gemtesa) 75 mg PO DAILY Tobacco use date assessed: 12/09/23 Dental Screening Dental Screen Date: 12/09/23 Did you have a dental visit in the last 12 months?: Yes Did you have a dental problem in the last 6 months where you did not have access to dental care?: No Was dental information given to patient?: Patient has dentist HPI [employer] F/U~[phone] HPI Details 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 However she has cut down to half a bottle from full bottle of 1 point She would like to try Librium to stop drinking altogether I have sent 25 mg capsules to be taken 3 times a day as needed to counteract the withdrawal effect We will book another appointment in 2 weeks. Patient was instructed not to drink any alcohol while taking this medication. Anxiety stable with buspirone up to 3 times a day 10 mg Continue lamotrigine 100 mg as a mood stabilizer Follow-up 2 weeks [facility] Medical History Major depressive disorder, severe Surgical History No pertinent past surgical history Family History Father Depression Mother History of blood clots Maternal Grandmother No problems noted. Maternal Grandfather Diabetes mellitus CVD (cardiovascular disease) Paternal Grandmother No problems noted. Paternal Grandfather Diabetes mellitus Social History Housing: House Alcohol intake: current Alcohol intake frequency: 0-2 drinks per day Alcohol type: other Patient Tobacco Use Status: Former Tobacco user Years Smoked: 6 years e-Cigarette/Vaping Use: Never Used service: No Current occupational status: employed Current occupation: [employer] Gender identity: Female Cognitive needs: No Hearing needs: No Vision needs: Yes Female Reproductive History Menstrual Age of Menarche: 14 Questionnaire Thrive Questionnaire Date Thrive assessed: 09/18/23 AUDIT C Alcohol Use Questionnaire (AUDIT-C) 1. How often do you have a drink containing alcohol?: 4 or more times a week 2. How many drinks containing alcohol do you have on a typical day when you are drinking?: 3 or 4 3. How often do you have six or more drinks on one occasion?: Weekly Total Score: 8 Score Reviewed/Action Taken: Yes FLORENCIA-7 AMB Questionnaire FLORENCIA-7 Date FLORENCIA - 7 assessed: 09/18/23 Source: Developed by Drs. Bishop Johnson, Kinsey Patel, Jaspreet Garcia and colleagues, with an educational lloyd from [employer]. Review of Systems Const Denies chills and Denies fever(s) ENT Denies epistaxis and Denies nasal discharge Card Denies chest pain Resp Denies chest congestion, Denies cough and Denies hemoptysis GI Denies diarrhea and Denies nausea Skin/Breast Denies rash Neuro Reports no additional complaints Psych Reports no additional complaints Endo Reports no additional complaints Physical exam (Primary Care) Tobacco/Smoking Status: Tobacco use Status Tobacco use date assessed 12/09/23 12/09/23 08:17 Patient Tobacco Use Status Former Tobacco user 12/09/23 08:17 e-Cigarette/Vaping Use Never Used 12/09/23 08:17 Thrive Assessment: Date of Thrive Assessment Date Thrive assessed 09/18/23 12/09/23 08:17 Telehealth Telehealth Telehealth Platform: Patterns Location of provider rendering services: practice address Location of patient: address on file Patient Identification confirmed using: Name, : Yes Telehealth method: video Patient verbally consented to treatment: Yes Patient verbally consented to billing insurance company: Yes Patient informed of any privacy concerns related to visit: Yes Assessment and Plan Assessment & Plan (1) Alcoholism: Code(s): F10.20 - Alcohol dependence, uncomplicated (2) Sensation of lump in throat: Code(s): R09.A2 - Foreign body sensation, throat (3) LFT elevation: Code(s): R79.89 - Other specified abnormal findings of blood chemistry (4) Anxiety, generalized: Code(s): F41.1 - Generalized anxiety disorder (5) Major depressive disorder, severe: Code(s): F32.2 - Major depressive disorder, single episode, severe without psychotic features Plan 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 However she has cut down to half a bottle from full bottle of 1 point She would like to try Librium to stop drinking altogether I have sent 25 mg capsules to be taken 3 times a day as needed to counteract the withdrawal effect We will book another appointment in 2 weeks. Patient was instructed not to drink any alcohol while taking this medication. She is complaining of having a sensation of lump in her throat. Requesting ENT consultation which I have placed for her Meanwhile she is to start omeprazole 20 mg b.i.d., explained to patient that over time drinking so much alcohol can cause inflammation in stomach lining and acid reflux Anxiety stable with buspirone up to 3 times a day 10 mg Continue lamotrigine 100 mg as a mood stabilizer Follow-up 2 weeks 30 minutes spent in care of this patient Including reviewing the chart, previous labs, viqa-cy-scne, charting, sending medication, coordination of care Orders: Referrals Ear/Nose/Throat Referral R09.A2 - Foreign body sensation, throat Medications: New omeprazole 20 mg PO BID 180 caps 0RF 90 days chlordiazepoxide HCl 25 mg PO TID PRN 45 caps 0RF Alcohol dependence 15 days Refilled lamotrigine 100 mg PO DAILY 90 tabs 0RF 90 days Coding Level of Care Code Tele Est Pt Level 4 (19244) Diagnoses Alcoholism F10.20 Sensation of lump in throat R09.A2 LFT elevation R79.89 Anxiety, generalized F41.1 Major depressive disorder, severe F32.2
== END 2023-12-09 10:10 | disposition home or self-care (01) ==
PROVIDERS: PCP Internal Medicine; Visit Provider Internal Medicine
DX: R09.A2 Foreign body sensation, throat (principal); F32.2 Major depressive disorder, single episode, severe without psychotic features; F10.20 Alcohol dependence, uncomplicated; R79.89 Other specified abnormal findings of blood chemistry; F41.1 Generalized anxiety disorder
CPT/HCPCS: 99214

== ENCOUNTER 2023-12-24 08:03 | Outpatient (AMB) | payer OTHER, SELFPAY ==
--- NOTE | 2023-12-24 08:09 | MHC.PC.OV ---
Intake Visit Reasons: 2wk F/u~ [phone] Allergies No Known Allergies [No Known Allergies*] Allergy (Verified 12/24/23 08:09) Medication List - Last Reconciled 12/24/23 by Casey Spencer MD buprenorphine-naloxone 8-2 mg 10 mg sublingual DAILY buspirone 10 mg PO TID PRN 30 days chlordiazepoxide HCl 25 mg PO TID PRN 15 days lamotrigine 100 mg PO DAILY 90 days omeprazole 20 mg PO BID 90 days vibegron (Gemtesa) 75 mg PO DAILY Tobacco use date assessed: 12/24/23 Dental Screening Dental Screen Date: 12/24/23 Did you have a dental visit in the last 12 months?: Yes Did you have a dental problem in the last 6 months where you did not have access to dental care?: No Was dental information given to patient?: Patient has dentist HPI 2wk F/u~ [phone] HPI Details Patient is a 32-year-old female this is a telemedicine visit follow-up I prescribed Librium for the patient last visit to help her get off alcohol Patient says that she took the medication but then she started having nightmares and difficulty sleeping And her behavior started to get aggressive so she had to stop the medication Now she is taking it only if she has to I am switching her to lorazepam 1 mg she may take 1 every 8 hour Currently she has cut down the consumption of alcohol to 1 nips of vodka 3 times a day She is also on Suboxone for the past 3 years and is trying to get off it I am hoping that lorazepam will help her with that as well She is aware that she is not supposed to drink alcohol and take lorazepam Patient is also aware that she is not supposed to be driving while taking lorazepam or working with machines. We will book another appointment in 1 week to follow up. [facility] Medical History Major depressive disorder, severe Surgical History No pertinent past surgical history Family History Father Depression Mother History of blood clots Maternal Grandmother No problems noted. Maternal Grandfather Diabetes mellitus CVD (cardiovascular disease) Paternal Grandmother No problems noted. 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 How often do you have a drink containing alcohol?: 4 or more times a week 2. How many drinks containing alcohol do you have on a typical day when you are drinking?: 3 or 4 3. How often do you have six or more drinks on one occasion?: Weekly Total Score: 8 Score Reviewed/Action Taken: Yes FLORENCIA-7 AMB Questionnaire FLORENCIA-7 Date FLORENCIA - 7 assessed: 09/18/23 Source: Developed by Drs. Bishop Johnson, Kinsey Patel, Jaspreet Garcia and colleagues, with an educational lloyd from [employer]. Review of Systems Const Denies chills and Denies fever(s) ENT Denies epistaxis and Denies nasal discharge Card Denies chest pain Resp Denies chest congestion, Denies cough and Denies hemoptysis GI Denies diarrhea and Denies nausea Skin/Breast Denies rash Neuro Reports no additional complaints Psych Reports no additional complaints Endo Reports no additional complaints Physical exam (Primary Care) Tobacco/Smoking Status: Tobacco use Status Tobacco use date assessed 12/24/23 12/24/23 08:10 Patient Tobacco Use Status Former Tobacco user 12/24/23 08:10 e-Cigarette/Vaping Use Never Used 12/24/23 08:10 Thrive Assessment: Date of Thrive Assessment Date Thrive assessed 09/18/23 12/24/23 08:10 Telehealth Telehealth Telehealth Platform: [facility] Location of provider rendering services: practice address Location of patient: address on file Patient Identification confirmed using: Name, : Yes Telehealth method: video Patient verbally consented to treatment: Yes Patient verbally consented to billing insurance company: Yes Patient informed of any privacy concerns related to visit: Yes Minutes spent on Phone/Video with Pt.: 13 Assessment and Plan Assessment & Plan (1) Alcoholism: Code(s): F10.20 - Alcohol dependence, uncomplicated (2) Anxiety, generalized: Code(s): F41.1 - Generalized anxiety disorder (3) Major depressive disorder, severe: Code(s): F32.2 - Major depressive disorder, single episode, severe without psychotic features Plan Patient is a 32-year-old female this is a telemedicine visit follow-up I prescribed Librium for the patient last visit to help her get off alcohol Patient says that she took the medication but then she started having nightmares and difficulty sleeping And her behavior started to get aggressive so she had to stop the medication Now she is taking it only if she has to I am switching her to lorazepam 1 mg she may take 1 every 8 hour Currently she has cut down the consumption of alcohol to 1 nips of vodka 3 times a day She is also on Suboxone for the past 3 years and is trying to get off it I am hoping that lorazepam will help her with that as well She is aware that she is not supposed to drink alcohol and take lorazepam Patient is also aware that she is not supposed to be driving while taking lorazepam or working with machines. We will book another appointment in 1 week to follow up. Medications: New lorazepam 1 mg PO TID 21 tabs 0RF anxiety 7 days Discontinued chlordiazepoxide HCl Discontinued Reason: Doctor's Order 25 mg PO TID 15 days PRN 45 caps 0RF Alcohol dependence Coding Level of Care Code Tele Est Pt Level 3 (60438) Diagnoses Alcoholism F10.20 Anxiety, generalized F41.1 Major depressive disorder, severe F32.2
== END 2023-12-24 11:04 | disposition home or self-care (01) ==
LOC: HO.HMGC 08:03
PROVIDERS: PCP Internal Medicine; Visit Provider Internal Medicine
DX: F41.1 Generalized anxiety disorder (principal); F10.20 Alcohol dependence, uncomplicated; F32.2 Major depressive disorder, single episode, severe without psychotic features
CPT/HCPCS: 99213

== ENCOUNTER 2024-02-16 09:49 | Outpatient (AMB) | payer OTHER, SELFPAY ==
[2024-02-16 09:52] VITALS: BP 116/80; PULSE 106; O2SAT 97; BMI 23.6
--- NOTE | 2024-02-16 09:52 | MHC.PC.OV ---
Vital Signs 02/16/24 09:52 Height 5 ft 6 in Weight 146 lb 4 oz BMI 23.6 BP 116/80 Blood Pressure Location Rt brachial Position Sitting Pulse 106 H Pulse Source Pulse Oximeter Pulse Oximetry (%) 97 Oxygen Delivery Method Room Air Intake Visit Reasons: Follow up Allergies No Known Allergies [No Known Allergies*] Allergy (Verified 02/16/24 09:52) Medication List - Last Reconciled 02/16/24 by Casey Spencer MD buprenorphine-naloxone 8-2 mg 10 mg sublingual DAILY buspirone 10 mg PO TID PRN 30 days lamotrigine 100 mg PO DAILY 90 days lorazepam 1 mg PO .qhs PRN 90 days omeprazole 20 mg PO BID 90 days vibegron (Gemtesa) 75 mg PO DAILY Tobacco use date assessed: 02/16/24 Dental Screening Dental Screen Date: 02/16/24 Did you have a dental visit in the last 12 months?: Yes Did you have a dental problem in the last 6 months where you did not have access to dental care?: No Was dental information given to patient?: Patient has dentist HPI Follow up HPI Details Patient is a 33-year-old female Patient have a history of alcoholism, has cut down to 2 nips a day Patient is trying to taper herself off it as she can not stop right away due to withdrawal symptoms I did prescribe Librium which did not agree with her We switched it to lorazepam She is currently taking it only at night as a sleep aid She is also on Suboxone for the past 3 years and is trying to get off it She continued to have feeling of foreign body in her throat off and on I did prescribe omeprazole to be taken 2 times a day which patient has not Explained to her that most likely she has acid reflux which is [place] [facility] As her sensation in throat comes and goes She does have appointment with ENT coming up this month for evaluation Ninety tablets of lorazepam sent patient knows that she is not to mix this medication with alcohol Follow-up 3 months [facility] Medical History Major depressive disorder, severe Surgical History No pertinent past surgical history Family History Father Depression Mother History of blood clots Maternal Grandmother No problems noted. Maternal Grandfather Diabetes mellitus CVD (cardiovascular disease) Paternal Grandmother No problems noted. Paternal Grandfather Diabetes mellitus Social History Housing: House Alcohol intake: current Alcohol intake frequency: 0-2 drinks per day Alcohol type: other Patient Tobacco Use Status: Former Tobacco user Years Smoked: 6 years e-Cigarette/Vaping Use: Never Used service: No Current occupational status: employed Current occupation: [employer] Gender identity: Female Cognitive needs: No Hearing needs: No Vision needs: Yes Female Reproductive History Menstrual Age of Menarche: 14 Questionnaire PHQ-9 Over the last 2 weeks, how often have you been bothered by any of the following problems? 1. Little interest or pleasure in doing things: several days 2. Feeling down, depressed, or hopeless: several days 3. Trouble falling or staying asleep, or sleeping too much: more than half the days 4. Feeling tired or having little energy: more than half the days 5. Poor appetite or overeating: not at all 6. Feeling bad about yourself - or that you are a failure or have let yourself or your family down: not at all 7. Trouble concentrating on things, such as reading the newspaper or watching television: more than half the days 8. Moving or speaking so slowly that other people could have noticed. Or the opposite - being so fidgety or restless that you have been moving around a lot more than usual: not at all 9. Thoughts that you would be better off or of hurting yourself in some way: not at all Total score: 8 Depression Screening Interpretation: Negative Depression Screening Done: Yes 54298 - PHQ-9 Billing: Yes Source: Developed by Drs. Bishop Johnson, Kinsey Patel, Jaspreet Garcia and colleagues, with an educational lloyd from [employer] Thrive Questionnaire Date Thrive assessed: 02/16/24 I am a: Patient What is your living situation today?: I have a steady place to live Within the past 12 months, did the food you bought not last and you didn't have the money to get more?: Never true Within the past 12 months, did you worry whether your food would run out before you got money to buy more?: Never true Do you have trouble paying for medicines?: No Do you have trouble getting transportation to medical appointments?: No Do you have trouble paying your heating and electricity bill?: No Do you have trouble taking care of your child, family member or friend?: No Do you have trouble with day-to-day activities such as bathing, preparing meals, shopping, managing finances, etc.?: No Are you currently unemployed and looking for a job?: No Are you interested in more education?: No Please select the resources that you would like help with: None Currently or been in a relationship where the following occur: No concerns reported THRIVE Score: 0 AUDIT C Alcohol Use Questionnaire (AUDIT-C) 1. How often do you have a drink containing alcohol?: 2-3 times a week 2. How many drinks containing alcohol do you have on a typical day when you are drinking?: 3 or 4 3. How often do you have six or more drinks on one occasion?: Weekly Total Score: 7 Score Reviewed/Action Taken: Yes FLORENCIA-7 AMB Questionnaire FLORENCIA-7 Date FLORENCIA - 7 assessed: 02/16/24 Feeling nervous, anxious, or on edge: 2 = More than half the days Not being able to stop or control worryin = Several days Worrying too much about different things: 1 = Several days Trouble relaxin = More than half the days Being so restless that it is hard to sit still: 0 = Not at all Becoming easily annoyed or irritable: 1 = Several days Feeling afraid as if something awful might happen: 0 = Not at all Total FLORENCIA-7 score (0-4 normal; 5-9 mild; 10-14 moderate; 15-21 severe): 7 Source: Developed by Drs. Bishop Johnson, Kinsey Patel, Jaspreet Garcia and colleagues, with an educational lloyd from [employer] FLORENCIA-7 Assessment Billing FLORENCIA-7 Assessment Tool: FLORENCIA-7 Assessment 60630 Review of Systems Const Denies chills and Denies fever(s) ENT Denies epistaxis and Denies nasal discharge Card Denies chest pain Resp Denies chest congestion, Denies cough and Denies hemoptysis GI Denies diarrhea and Denies nausea Skin/Breast Denies rash Neuro Reports no additional complaints Psych Reports no additional complaints Endo Reports no additional complaints Physical exam (Primary Care) Vital Signs: Last Vital Signs Pulse 106 H 02/16/24 09:52 BP 116/80 02/16/24 09:52 Pulse Ox 97 02/16/24 09:52 Oxygen Delivery Method Room Air 02/16/24 09:52 BMI result Body Mass Index 23.6 Tobacco/Smoking Status: Tobacco use Status Tobacco use date assessed 02/16/24 02/16/24 09:54 Patient Tobacco Use Status Former Tobacco user 02/16/24 09:54 e-Cigarette/Vaping Use Never Used 02/16/24 09:54 PHQ-9: PHQ-9 Score PHQ-9: Total score 8 02/16/24 10:05 Depression Screening Interpretation: Negative Thrive Assessment: Date of Thrive Assessment Date Thrive assessed 02/16/24 02/16/24 09:54 Currently or been in a relationship where the following occur: No concerns reported Const General: cooperative, comfortable and no acute distress Orientation/consciousness: patient oriented x3 HENMT Head: Yes normocephalic Eyes General: appearance normal, both eyes and all related structures Neck Neck: Yes supple Resp Effort & Inspection: normal respiratory effort, no cough and no stridor Cardio Rhythm: regular rhythm Heart sounds: S1 normal heart sound present and S2 normal heart sound present Skin General skin exam: turgor normal Neuro General: patient oriented x3, tone normal and moves all extremities Extrem Right lower extremity: no edema Left lower extremity: no edema Assessment and Plan Assessment & Plan (1) Alcoholism: Code(s): F10.20 - Alcohol dependence, uncomplicated (2) Sensation of lump in throat: Code(s): R09.A2 - Foreign body sensation, throat (3) Anxiety, generalized: Code(s): F41.1 - Generalized anxiety disorder (4) Major depressive disorder, severe: Code(s): F32.2 - Major depressive disorder, single episode, severe without psychotic features Plan Patient is a 33-year-old female Patient have a history of alcoholism, has cut down to 2 nips a day Patient is trying to taper herself off it as she can not stop right away due to withdrawal symptoms I did prescribe Librium which did not agree with her We switched it to lorazepam She is currently taking it only at night as a sleep aid She is also on Suboxone for the past 3 years and is trying to get off it She continued to have feeling of foreign body in her throat off and on I did prescribe omeprazole to be taken 2 times a day which patient has not Explained to her that most likely she has acid reflux which is local [employer] As her sensation in throat comes and goes She does have appointment with ENT coming up this month for evaluation Ninety tablets of lorazepam sent patient knows that she is not to mix this medication with alcohol Follow-up 3 months Medications: Changed From lorazepam 1 mg PO TID 7 days 21 tabs 0RF anxiety To lorazepam 1 mg PO .qhs PRN 90 tabs 0RF anxiety/sleep 90 days Refilled omeprazole 20 mg PO BID 180 caps 0RF 90 days Coding Level of Care Code Est Pt Level 4 (74887) Diagnoses Alcoholism F10.20 Sensation of lump in throat R09.A2 Anxiety, generalized F41.1 Major depressive disorder, severe F32.2 Additional Codes FLORENCIA-7 Assessment Billing - FLORENCIA-7 Assessment Tool: FLORENCIA-7 Assessment [id number] ([id number])
== END 2024-02-16 10:06 | disposition home or self-care (01) ==
PROVIDERS: PCP Internal Medicine; Visit Provider Internal Medicine
DX: R09.A2 Foreign body sensation, throat (principal); F10.20 Alcohol dependence, uncomplicated; F32.2 Major depressive disorder, single episode, severe without psychotic features; F41.1 Generalized anxiety disorder
CPT/HCPCS: 99214

== ENCOUNTER 2024-05-24 12:12 | Outpatient (AMB) | payer OTHER, SELFPAY ==
--- NOTE | 2024-05-24 12:15 | A.OFFPC_ITS ---
Vital Signs 05/24/24 12:16 Height 5 ft 6 in Weight 139 lb BMI 22.4 BP 136/88 Blood Pressure Location Rt brachial Position Sitting Pulse 106 H Pulse Source Pulse Oximeter Pulse Oximetry (%) 96 Oxygen Delivery Method Room Air Intake Visit Reasons: Office visit Allergies No Known Allergies [No Known Allergies*] Allergy (Verified 05/24/24 12:19) Medication List - Last Reconciled 05/24/24 by Casey Spencer MD buprenorphine-naloxone 8-2 mg 10 mg sublingual DAILY buspirone 10 mg PO TID PRN 30 days lamotrigine 100 mg PO DAILY 90 days lorazepam 1 mg PO .qhs PRN 90 days omeprazole 20 mg PO BID 90 days vibegron (Gemtesa) 75 mg PO DAILY Tobacco use date assessed: 05/24/24 Dental Screening Dental Screen Date: 05/24/24 Did you have a dental visit in the last 12 months?: Yes Did you have a dental problem in the last 6 months where you did not have access to dental care?: No Was dental information given to patient?: Patient has dentist HPI Office visit HPI0 Details Gemtesa indication Chief Complaint Patient reports improvement in alcohol consumption and medication grogginess. Assessment and Plan 33-year-old female with a history of anx iety and bipolar disorder presenting for a regular follow-up to manage chronic conditions and discuss recent medication adjustments. The patient reports significant improvement in alcohol consumption, now limited to one drink occasionally, which is a positive development given her previous history of excessive alcohol intake. She continues to manage her anxiety with the use of buspirone and other medications but has self-adjusted the dosage of lorazepam due to morning grogginess. The patient's GERD remains stable under omeprazole treatment. She is currently managing responsibilities as the healthcare proxy for her mother, who is undergoing cancer treatment. The patient requested a referral for OB due to insurance issues and expressed interest in monitoring her liver function given her history of alcohol use. 1. Alcohol Use Disorder The patient has significantly reduced her alcohol intake, now occasionally consuming one white seltzer with 5% alcohol content. She plans to maintain this moderate level of drinking, as she feels in control of her consumption. No additional interventions planned as patient reports stability. Liver function tests to be performed prior to the next appointment to monitor possible effects of past alcohol use. 2. Anxiety The patient continues with buspirone. She reports having leftover lorazepam tablets and has adjusted the dose by cutting them in half to prevent grogginess without the need for additional refills. No changes to current medication regimen. 3. Gerd Gastroesophageal Reflux Disease Patient continues on omeprazole. Management plan continues as is due to reported stability in symptoms. 4. Bipolar Disorder The patient remains on lamotrigine. Continues with routine management. Monitors medication effects and mental health stability. 5. Healthcare Proxy Responsibilities The patient is managing responsibilities for her mother who is undergoing cancer treatment. Emotional support and regular check-ins are implied, although further interventions were not discussed in detail. Diagnostic results - Labs: - Liver function tests to be ord ered and conducted before next appointment. Problem List - Alcohol Use Disorder - Anxiety - Bipolar Disorder - GERD (Gastroesophageal Reflux Disease) - Healthcare Proxy Responsibilities - Maternal Cancer Care Medications - Buspirone for management of anxiety. - Lamotrigine for stabilization of bipol ar disorder. - Lorazepam for anxiety with adjusted do sing per patient's report. - Omeprazole for management of GERD symp toms. - Gemtesa for urinary incontinence Health Maintenance - Referral for OB requested - Order for pre-appointment laboratory s tudies, including liver function tests. - Discussion surrounding fasting require ments for upcoming labs. - Inquiry regarding flu vaccine; patient declined. Patient Instructions - Continue with current medication regim en as adjusted. - Monitor alcohol intake and be mindful of liver health. - Prepare for fasting before upcoming la bs. - Remember to schedule and attend OB ref erral once resolved with insurance. - Follow up with results of UTI test if necessary. UA shows slight indication of UTI, Macrobid script sent, patient was notified [facility] Medical History Major depressive disorder, severe Surgical History No pertinent past surgical history Family History Father Depression Mother History of blood clots Maternal Grandmother No problems noted. Maternal Grandfather Diabetes mellitus CVD (cardiovascular disease) Paternal Grandmother No problems noted. Paternal Grandfather Diabetes mellitus Social History Housing: House Alcohol intake: current Alcohol intake frequency: 0-2 drinks per day Alcohol type: other Patient Tobacco Use Status: Former Tobacco user Years Smoked: 6 years e-Cigarette/Vaping Use: Never Used service: No Current occupational status: employed Current occupation: [employer] Gender identity: Female Cognitive needs: No Hearing needs: No Vision needs: Yes Female Reproductive History Menstrual Age of Menarche: 14 Questionnaire Thrive Questionnaire Date Thrive assessed: 05/24/24 I am a: Patient What is your living situation today?: I have a steady place to live Within the past 12 months, did the food you bought not last and you didn't have the money to get more?: Never true Within the past 12 months, did you worry whether your food would run out before you got money to buy more?: Never true Do you have trouble paying for medicines?: No Do you have trouble getting transportation to medical appointments?: No Do you have trouble paying your heating and electricity bill?: No Do you have trouble taking care of your child, family member or friend?: No Do you have trouble with day-to-day activities such as bathing, preparing meals, shopping, managing finances, etc.?: No Are you currently unemployed and looking for a job?: No Are you interested in more education?: No Please select the resources that you would like help with: None Currently or been in a relationship where the following occur: No concerns reported THRIVE Score: 0 AUDIT C Alcohol Use Questionnaire (AUDIT-C) 1. How often do you have a drink containing alcohol?: 2-3 times a week 2. How many drinks containing alcohol do you have on a typical day when you are drinking?: 3 or 4 3. How often do you have six or more drinks on one occasion?: Weekly Total Score: 7 Score Reviewed/Action Taken: Yes FLORENCIA-7 AMB Questionnaire FLORENCIA-7 Date FLORENCIA - 7 assessed: 02/16/24 Source: Developed by Drs. Bishop Johnson, Kinsey Patel, Jaspreet Garcia and colleagues, with an educational lloyd from [employer]. Review of Systems Const Denies chills and Denies fever(s) ENT Denies epistaxis and Denies nasal discharge Card Denies chest pain Resp Denies chest congestion, Denies cough and Denies hemoptysis GI Denies diarrhea and Denies nausea Skin/Breast Denies rash Neuro Reports no additional complaints Psych Reports no additional complaints Endo Reports no additional complaints Physical exam (Primary Care) Vital Signs: Last Vital Signs Pulse 106 H 05/24/24 12:16 BP 136/88 05/24/24 12:16 Pulse Ox 96 05/24/24 12:16 Oxygen Delivery Method Room Air 05/24/24 12:16 BMI result Body Mass Index 22.4 Tobacco/Smoking Status: Tobacco use Status Tobacco use date assessed 05/24/24 05/24/24 12:20 Patient Tobacco Use Status Former Tobacco user 05/24/24 12:20 e-Cigarette/Vaping Use Never Used 05/24/24 12:20 Thrive Assessment: Date of Thrive Assessment Date Thrive assessed 05/24/24 05/24/24 12:20 Currently or been in a relationship where the following occur: No concerns reported Const General: cooperative, comfortable and no acute distress Orientation/consciousness: patient oriented x3 HENMT Head: Yes normocephalic Eyes General: appearance normal, both eyes and all related structures Neck Neck: Yes supple Resp Effort & Inspection: normal respiratory effort, no cough and no stridor Cardio Rhythm: regular rhythm Heart sounds: S1 normal heart sound present and S2 normal heart sound present Skin General skin exam: turgor normal Neuro General: patient oriented x3, tone normal and moves all extremities Extrem Right lower extremity: no edema Left lower extremity: no edema Results AMB Urinalysis, Automated UA Leukoctes 15 Mukesh/uL Last Edit by DOUGLAS Bonilla on 05/24/24 13:5 4 UA Nitrite Negative Last Edit by DOUGLAS Bonilla on 05/24/24 13:54 UA Urobilinogen 0.2 mg/dL Last Edit by DOUGLAS Bonilla on 05/24/24 13:54 UA Protein 15 mg/dL Last Edit by DOUGLAS Bonilla on 05/24/24 13:54 UA pH 6.5 Last Edit by DOUGLAS Bonilla on 05/24/24 13:54 UA Blood 0 Omega/uL Last Edit by DOUGLAS Bonilla on 05/24/24 13:54 UA Specific [place] 1.015 Last Edit by DOUGLAS Bonilla on 05/24/24 13:54 UA Ketone Positive Last Edit by DOUGLAS Bonilla on 05/24/24 13:54 UA Bilirubin 0 mg/dL Last Edit by DOUGLAS Bonilla on 05/24/24 13:54 UA Glucose 0 mg/dL Last Edit by DOUGLAS Bonilla on 05/24/24 13:54 Results Reviewed Results Reviewed: Laboratory Last Values Urine pH (Auto) 6.5 05/24/24 13:52 Specific [place] (Auto) 1.015 05/24/24 13:52 Urine Protein (Auto) 15 mg/dL 05/24/24 13:52 Glucose (UA)(Auto) 0 mg/dL 05/24/24 13:52 Urine Ketones (Auto) Positive 05/24/24 13:52 Urine Blood (Auto) 0 Omega/uL 05/24/24 13:52 Urine Nitrite (Auto) Negative 05/24/24 13:52 Urine Bilirubin (Auto) 0 mg/dL 05/24/24 13:52 Urine Urobilinogen (Auto) 0.2 mg/dL 05/24/24 13:52 Leukocyte Esterase (Auto) 15 Mukesh/uL 05/24/24 13:52 Coding Level of Care Code Est Pt Level 4 (88098) Diagnoses Major depressive disorder, severe F32.2 Vitamin D deficiency E55.9 Anxiety, generalized F41.1 Alcoholism F10.20 LFT elevation R79.89 Dysuria R30.0 Assessment & Plan Assessment & Plan (1) Major depressive disorder, severe: Code(s): F32.2 - Major depressive disorder, single episode, severe without psychotic features Category: Medical (2) Vitamin D deficiency: Code(s): E55.9 - Vitamin D deficiency, unspecified Category: Medical (3) Anxiety, generalized: Code(s): F41.1 - Generalized anxiety disorder Category: Medical (4) Alcoholism: Code(s): F10.20 - Alcohol dependence, uncomplicated Category: Medical (5) LFT elevation: Code(s): R79.89 - Other specified abnormal findings of blood chemistry Category: Medical (6) Dysuria: Code(s): R30.0 - Dysuria Category: Medical Plan Gemtesa indication Chief Complaint Patient reports improvement in alcohol consumption and medication grogginess. Assessment and Plan 33-year-old female with a history of anxiety and bipolar disorder presenting for a regular follow-up to manage chronic conditions and discuss recent medication adjustments. The patient reports significant improvement in alcohol consumption, now limited to one drink occasionally, which is a positive development given her previous history of excessive alcohol intake. She continues to manage her a nxiety with the use of buspirone and other medications but has self-adjusted the dosage of lorazepam due to morning grogginess. The patient's GERD remains stable under omeprazole treatment. She is currently managing responsibilities as the healthcare proxy for her mother, who is undergoing cancer treatment. The patient requested a referral for OB due to insurance issues and expressed interest in m onitoring her liver function given her history of alcohol use. 1. Alcohol Use Disorder The patient has significantly reduced her alcohol intake, now occasionally consuming one white seltzer with 5% alcohol content. She plans to maintain this moderate level of drinking, as she feels in control of her consumption. No additional interventions planned as patient reports stability. Liver function tests to be performed prior to the next appointment to monitor possible effects of past alcohol use. 2. Anxiety The patient continues with buspirone. She reports having leftover lorazepam tablets and has adjusted the dose by cutting them in half to prevent grogginess without the need for additional refills. No changes to current medication regimen. 3. Gerd Gastroesophageal Reflux Disease Patient continues on omeprazole. Management plan continues as is due to reported stability in symptoms. 4. Bipolar Disorder The patient remains on lamotrigine. Continues with routine management. Monitors medication effects and mental health stability. 5. Healthcare Proxy Responsibilities The patient is managing responsibilities for her mother who is undergoing cancer treatment. Emotional support and regular check-ins are implied, although further interventions were not discussed in detail. Diagnostic results - Labs: - Liver function tests to be ordered and conducted before next appointment. Problem List - Alcohol Use Disorder - Anxiety - Bipolar Disorder - GERD (Gastroesophageal Reflux Disease) - Healthcare Proxy Responsibilities - Maternal Cancer Care Medications - Buspirone for management of anxiety. - Lamotrigine for stabilization of bipolar disorder. - Lorazepam for anxiety with adjusted dosing per patient's report. - Omeprazole for management of GERD symptoms. - Gemtesa for urinary incontinence Health Maintenance - Referral for OB requested - Order for pre-appointment laboratory studies, including liver function tests. - Discussion surrounding fasting requirements for upcoming labs. - Inquiry regarding flu vaccine; patient declined. Patient Instructions - Continue with current medication regimen as adjusted. - Monitor alcohol intake and be mindful of liver health. - Prepare for fasting before upcoming labs. - Remember to schedule and attend OB referral once resolved with insurance. - Follow up with results of UTI test if necessary. UA shows slight indication of UTI, Macrobid script sent, patient was notified Orders: Orders AMB Urinalysis Automated Today Z13.9 - Encounter for screening, unspecified Comprehensive [place]. Panel Fast Today E55.9 - Vitamin D deficiency, unspecified, F10.20 - Alcohol dependence, uncomplicated, F32.2 - Major depressive disorder, single episode, severe without psychotic features, F41.1 - Generalized anxiety disorder, R79.89 - Other specified abnormal findings of blood chemistry Lipid Panel Today E55.9 - Vitamin D deficiency, unspecified, F10.20 - Alcohol dependence, uncomplicated, F32.2 - Major depressive disorder, single episode, severe without psychotic features, F41.1 - Generalized anxiety disorder, R79.89 - Other specified abnormal findings of blood chemistry TSH reflex Free T4 Today E55.9 - Vitamin D deficiency, unspecified, F10.20 - Alcohol dependence, uncomplicated, F32.2 - Major depressive disorder, single episode, severe without psychotic features, F41.1 - Generalized anxiety disorder, R79.89 - Other specified abnormal findings of blood chemistry Complete Blood Count Auto Diff Today E55.9 - Vitamin D deficiency, unspecified, F10.20 - Alcohol dependence, uncomplicated, F32.2 - Major depressive disorder, single episode, severe without psychotic features, F41.1 - Generalized anxiety disorder, R79.89 - Other specified abnormal findings of blood chemistry Vitamin B12 Today E55.9 - Vitamin D deficiency, unspecified, F10.20 - Alcohol dependence, uncomplicated, F32.2 - Major depressive disorder, single episode, severe without psychotic features, F41.1 - Generalized anxiety disorder, R79.89 - Other specified abnormal findings of blood chemistry Vitamin D 25-OH (D2 and D3) Today E55.9 - Vitamin D deficiency, unspecified, F10.20 - Alcohol dependence, uncomplicated, F32.2 - Major depressive disorder, single episode, severe without psychotic features, F41.1 - Generalized anxiety disorder, R79.89 - Other specified abnormal findings of blood chemistry Referrals [facility] Referral Z01.419 - Encounter for gynecological examination (general) (routine) without abnormal findings Medications: New nitrofurantoin monohyd/m-cryst 100 mg (Macrobid) must administer with a meal/food 100 mg PO Q12H 5 days 10 caps 0RF
[2024-05-24 12:16] VITALS: BP 136/88; PULSE 106; O2SAT 96; BMI 22.4
== END 2024-05-24 12:46 | disposition home or self-care (01) ==
PROVIDERS: PCP Internal Medicine; Visit Provider Internal Medicine
DX: F32.2 Major depressive disorder, single episode, severe without psychotic features (principal); E55.9 Vitamin D deficiency, unspecified; F41.1 Generalized anxiety disorder; F10.20 Alcohol dependence, uncomplicated; R79.89 Other specified abnormal findings of blood chemistry; R30.0 Dysuria; Z13.9 Encounter for screening, unspecified

== ENCOUNTER → 2024-05-24 12:12 | Outpatient (BNVA) | payer OTHER, SELFPAY | PROVIDERS: PCP Internal Medicine; Visit Provider Internal Medicine | DX: F32.2 Major depressive disorder, single episode, severe without psychotic features (principal); E55.9 Vitamin D deficiency, unspecified; F41.1 Generalized anxiety disorder; F10.20 Alcohol dependence, uncomplicated; R79.89 Other specified abnormal findings of blood chemistry; R30.0 Dysuria; K21.9 Gastro-esophageal reflux disease without esophagitis; F31.9 Bipolar disorder, unspecified; Z79.899 Other long term (current) drug therapy | CPT/HCPCS: 81003 ==

== ENCOUNTER 2024-08-08 14:29 | Outpatient (AMB) | payer OTHER, SELFPAY ==
--- NOTE | 2024-08-08 14:31 | A.OFFVIS_ITS ---
Vital Signs 08/08/24 14:47 Height 5 ft 6 in Weight 140 lb BMI 22.6 BP 126/76 Intake Visit Reasons: annual Intake Note: Patient complains of yellow discharge and fowl smell in urine. 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 (Opal) Accompanied by: Self / Same As Patient Allergies No Known Allergies [No Known Allergies*] Allergy (Verified 08/08/24 14:48) Medication List - Last Reconciled 08/08/24 by Nilam Michelle CNM buprenorphine-naloxone 8-2 mg 10 mg sublingual DAILY buspirone 10 mg PO TID PRN 30 days lamotrigine 100 mg PO DAILY 90 days lorazepam 1 mg PO .qhs PRN 90 days nitrofurantoin monohyd/m-cryst 100 mg (Macrobid) 100 mg PO Q12H 5 days omeprazole 20 mg PO BID 90 days vibegron (Gemtesa) 75 mg PO DAILY Is last menstrual period known: Yes Last menstrual period: 07/27/24 Post menopausal: No Patient : No HPI HPI annual: Details: 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 She is not having any steel fitter concerns per se but she does notice some discharge and did want to get that checked out. She is not at all worried about sexually transmitted infections she is in a monogamous relationship with her and has no concerns at all he just got a vasectomy so she does not need to worry about control anymore either it was done 6 months ago and he did have some discomfort after that is sometimes recurs, but he is gone for the negative sperm count. 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 She was having lots of issues with frequent urination at night and was diagnosed with overactive bladder and is now on a medication that she is finding helpful. [facility] Medical History Major depressive disorder, severe Surgical History No pertinent past surgical history Family History Father Depression Mother History of blood clots Maternal Grandmother No problems noted. Maternal Grandfather Diabetes mellitus CVD (cardiovascular disease) Paternal Grandmother No problems noted. Paternal Grandfather Diabetes mellitus Social History Housing: House Alcohol intake: current Alcohol intake frequency: 0-2 drinks per day Alcohol type: other Patient Tobacco Use Status: Former Tobacco user Years Smoked: 6 years e-Cigarette/Vaping Use: Never Used service: No Current occupational status: employed Current occupation: [employer] Gender identity: Female Cognitive needs: No Hearing needs: No Vision needs: Yes Female Reproductive History Menstrual Age of Menarche: 14 Duration of menses: 3-5 days Date of last menstrual period: 07/27/24 Total pregnancies: 3 Full term: 2 Date of last pap smear: 08/17/21 (negative pap smear, negative hpv ) History of abnormal pap smear: No Physical Exam Vital Signs: Last Vital Signs BP 126/76 08/08/24 14:47 BMI result Body Mass Index 22.6 Const General: healthy appearing, comfortable, no acute distress, well developed and alert Nutritional Appearance: average body habitus Orientation/consciousness: patient oriented x3 Limitations: no limitations HEENT Head: Yes normocephalic Neck Neck: Yes normal visual inspection Chest Chest palpation & inspection: normal inspection of the chest Breast/axilla inspection: normal inspection of the breasts and normal inspection of the axillae Breast/axilla palpation: normal palpation of the breasts and normal palpation of the axillae Resp Effort & Inspection: normal respiratory effort GI Inspection: Yes normal to inspection, No Abdominal wall edema and No distended Palpation (GI): Soft to palpation and nontender Other: External exam within normal limits vagina pink and moist cervix pink multiparous very deep in pelvis very posterior mobile nontender uterus is markedly anteroposterior with fundus of year sitting right on bladder possibly explaining her repeated need to void at night. General: Yes bladder normal to palpation External Female Exam: normal external appearance and normal appearance of the urethra Speculum Exam - Vagina: normal appearance of the vagina, normal palpation and normal vaginal discharge Speculum Exam - Cervix: normal appearance of the cervix, normal palpation and nontender Bimanual exam- vagina & uterus: normal bimanual exam, normal palpation, uterine size normal, bladder normal to palpation, consistency normal, normal palpation, uterine mobility normal, uterine shape normal, No Cervical tenderness present, non-tender and no cervical motion tenderness Bimanual Exam- Adnexa, other: normal adnexae, no masses, normal and No adnexal tenderness Neuro General: patient oriented x3 Assessment & Plan Assessment & Plan (1) Frequency of urination: Code(s): R35.0 - Frequency of micturition Category: Medical (2) Well woman exam with routine gynecological exam: Code(s): Z01.419 - Encounter for gynecological examination (general) (routine) without abnormal findings Category: Medical (3) control counseling: Code(s): Z30.09 - Encounter for other general counseling and advice on contraception Category: Medical (4) Cervical cancer screening: Comment: 08/22/2021 Pap equals negative with negative HPV Code(s): Z12.4 - Encounter for screening for malignant neoplasm of cervix Category: Medical (5) Encounter for routine gynecological examination: Code(s): Z01.419 - Encounter for gynecological examination (general) (routine) without abnormal findings Category: Medical (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 Discussed that she will be due for Pap smear in 2026 and that we say come back every year but if she has no issues next year and wants to come instead into years that would be acceptable. Discussed that mammograms will start at age 40 and that it is often helpful to schedule them after menses. Discussed normal changes to the discharge throughout the cycle. There was some positive findings in the urine dip however she had no symptoms of a UTI or anything and in any case if she did she really should seek management from her Urology providers. Discussed the challenges of her genetic dermatological condition with her nails and dry hands and also suggested consideration towards seeking input from a porcelain mixer as to whether or not the newer treatments for alopecia would be useful to her at this point. She says she is actively losing hair at this point her sister has alopecia areata and has progressed to being completely bald as well. Discussed the challenges of protecting children from bullying behavior as well as regards these issues. Also discussed the possibility that her particular anatomy of her low lying very anteroposterior uterus lying on her bladder contributes to her bladder symptoms. Reviewed Kegel's and encouraged her to be conscious of not pushing out while doing the Kegel but rather to pull the muscles upward as she contracts them. Patient was able to successfully due to Kegel's with slightly increasing upward strength each time. Suggested considering Vaseline to hands and covering with white cotton gloves at night in winter times. ? RTC 1 year Annual with Pap would be due in 2 years ? 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
[2024-08-08 14:47] VITALS: BP 126/76; BMI 22.6
== END 2024-08-08 15:59 | disposition home or self-care (01) ==
LOC: HO.HWS 14:29
PROVIDERS: PCP Internal Medicine; Visit Provider Advanced Practice Midwife
DX: Z01.419 Encounter for gynecological examination (general) (routine) without abnormal findings (principal); R35.0 Frequency of micturition; L65.9 Nonscarring hair loss, unspecified
CPT/HCPCS: 99395; 99459

== ENCOUNTER 2024-08-08 14:29 | Outpatient (REF) | payer OTHER, SELFPAY ==
[2024-08-10 11:51] LABS: CT PCR NOT DETECTED (Not Detect.); NG PCR NOT DETECTED (Not Detect.)
[2024-08-10 14:51] LABS: Bacterial Vaginosis PCR NEGATIVE (Negative); Candida Group PCR NOT DETECTED (Not Detect); Candida glab krusei PCR NOT DETECTED (Not Detect); Trichomonas vaginalis PCR NOT DETECTED (Not Detect)
== END 2024-08-08 14:30 | disposition home or self-care (01) ==
LOC: HO.LNP 14:29
PROVIDERS: PCP Internal Medicine; Visit Provider Advanced Practice Midwife
DX: Z01.419 Encounter for gynecological examination (general) (routine) without abnormal findings (principal); R82.998 Other abnormal findings in urine; R35.0 Frequency of micturition; L65.9 Nonscarring hair loss, unspecified; Q82.4 Ectodermal dysplasia (anhidrotic)
CPT/HCPCS: 81515; 87491; 87591

== ENCOUNTER 2024-09-21 12:29 | Outpatient (REF) | payer OTHER, SELFPAY ==
[2024-09-21 16:09] LABS: MANUAL DIFF FLAG NO
[2024-09-21 16:19] LABS: Basophils Percent Auto 0.5 % (0-2); Eosinophils Absolute Auto 0.1 X10*3/uL (0.0-0.4); Eosinophils Percent Auto 1.4 % (0-4); Hematocrit 39.5 % (37.0-47.0); Hemoglobin 12.9 g/dl (12.0-16.0); Imm Gran Abs Auto 0.02 X10*3/uL (0.00-0.03); Imm Gran Pct Auto 0.3 % (0.0-0.4); Lymphocytes Absolute Auto 1.6 X10*3/uL (1.2-4.9); Lymphocytes Percent Auto 25.4 % (20-40); Mean Corpuscular HGB Conc 32.7 g/dl (31.0-35.0); Mean Corpuscular Hemoglobin 30.5 pg (27.0-33.0); Mean Corpuscular Volume 93.4 fL (80.0-98.0); Mean Platelet Volume 10.1 fL (9.4-12.3); Monocytes Absolute Auto 0.5 X10*3/uL (0.1-1.2); Monocytes Percent Auto 8.3 % (2-11); Neutrophils Absolute Auto 4.1 x10*3/uL (2.0-8.3); Neutrophils Percent Auto 64.1 % (45-73); Platelet Count 282 X10*3/uL (160-400); Red Blood Count 4.23 X10*6/uL (4.20-5.50); Red Cell Distribution Width 13.9 % (11.0-16.0); White Blood Count 6.4 X10*3/uL (4.8-10.8)
[2024-09-21 16:46] LABS: Alanine Aminotransferase 34 U/L (0-31); Albumin Level 4.6 g/dL (3.5-5.0); Alkaline Phosphatase 51 U/L (39-117); Anion Gap 13 (12-20); Aspartate Amino Transferase 47 U/L (5-31); Bilirubin Total 0.6 mg/dL (0.0-1.0); Blood Urea Nitrogen 9 mg/dL (9-16); Calcium 9.7 mg/dL (8.4-10.2); Carbon Dioxide 28 mmol/L (22-29); Chloride 104 mmol/L (96-108); Cholesterol 231 mg/dL (<200); Estimated Glomerular Filt Rate > 60; Glucose Fasting 123 mg/dL (60-99); HDL Cholesterol 88 mg/dL (>40); LDL Cholesterol Calculated 120 mg/dL (<100); Potassium 3.8 mmol/L (3.3-5.1); Sodium 141 mmol/L (135-145); Total Protein 7.2 g/dL (6.5-8.0); Triglycerides 115 mg/dL (<150)
[2024-09-21 16:48] LABS: TSH reflex Free T4 3.47 uIU/mL (0.32-4.0)
[2024-09-21 16:56] LABS: Vitamin B12 284 pg/mL (200-900)
[2024-09-25 13:14] LABS: Vitamin D 25-OH, D2 <4 ng/mL; Vitamin D 25-OH, D3 23 ng/mL; Vitamin D 25-OH, Total 23 ng/mL (30-100)
== END 2024-09-21 12:30 | disposition home or self-care (01) ==
LOC: HO.HMGCLDS 12:29
PROVIDERS: PCP Internal Medicine; Visit Provider Internal Medicine
DX: Z00.01 Encounter for general adult medical examination with abnormal findings (principal); R21 Rash and other nonspecific skin eruption; R79.89 Other specified abnormal findings of blood chemistry; F10.20 Alcohol dependence, uncomplicated; F41.1 Generalized anxiety disorder; F32.2 Major depressive disorder, single episode, severe without psychotic features; E55.9 Vitamin D deficiency, unspecified; Z79.899 Other long term (current) drug therapy
CPT/HCPCS: 36415; 80053; 80061; 82306; 82607; 84443; 85025; 96127

== ENCOUNTER 2024-09-21 12:29 | Outpatient (AMB) | payer OTHER, SELFPAY ==
[2024-09-21 12:32] VITALS: BP 142/96; PULSE 107; O2SAT 97; BMI 22.9
--- NOTE | 2024-09-21 12:32 | A.OFFPC_ITS ---
Vital Signs 09/21/24 12:32 Height 5 ft 6 in Weight 142 lb 2 oz BMI 22.9 BP 142/96 H Blood Pressure Location Lt brachial Position Sitting Pulse 107 H Pulse Source Pulse Oximeter Pulse Oximetry (%) 97 Oxygen Delivery Method Room Air Intake Visit Reasons: Annual PE Allergies No Known Allergies [No Known Allergies*] Allergy (Verified 09/21/24 12:32) Medication List - Last Reconciled 09/21/24 by Casey Spencer MD buprenorphine-naloxone 8-2 mg 10 mg sublingual DAILY buspirone 10 mg PO TID PRN 30 days lamotrigine 100 mg PO DAILY 90 days lorazepam 1 mg PO .qhs PRN 90 days omeprazole 20 mg PO BID 90 days vibegron (Gemtesa) 75 mg PO DAILY Tobacco use date assessed: 09/21/24 Dental Screening Dental Screen Date: 09/21/24 Did you have a dental visit in the last 12 months?: Yes Did you have a dental problem in the last 6 months where you did not have access to dental care?: No Was dental information given to patient?: Patient has dentist HPI Annual PE HPI Details Physical exam - The patient is a 33-year-old female pr esenting with a physical examination and management of anxiety and hypertension. - The patient reports experiencing anxie ty, which is worsened at night despite medication. She notes that anxiety can sometimes be triggered by going to places. - Essential hypertension was noted with a blood pressure of 142. The patient acknowledges a level of stress which may be contributing to this. - A history of alcohol use is noted, wit h a current intake of up to two drinks a day on non-working days. The patient reports a significant reduction in drinking compared to the past. - She has facial concerns involving red dots, for which no itchiness is reported, but concealment with makeup is done due to embarrassment. Health Maintenance - Acknowledgment of the need to repeat l aboratory tests, including fasting blood work, which the patient is prepared for during this visit. - Last OB-RESIDENT SERVICES SUPERVISOR visit was in August, sugges ting ongoing gynecological monitoring. Medications - Buspirone: Taken for anxiety, dosage i ncludes two tablets in the morning on most days; not taken in the afternoon unless needed. - Lamotrigine: Taken regularly, last pre scribed in August. - Lorazepam: Taken for controlling night time anxiety; the patient sometimes takes half a dose. - Gemteza: Taken for bladder management. - Omeprazole: Confirmed to have remainin g supply; hasn't been recently taken. 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 - Work schedule includes Thursday nights, , and every other weekend. - Reports taking on extra work hours, im plying increased workload. Patient Instructions - Proceed to have fasting labs done afte r completing the visit. - Reduce alcohol consumption further as part of managing blood pressure and anxiety. - Consider seeing a local company flatbed truck driver for fa cial concerns pending costs and logistics. Review of Systems - General: No fever no chills - Neurological: No headaches no dizzin ess - Ear nose throat: No sore throat no hearing difficulty no ear pain - Cardiovascular: No syncope, no chest pain, no palpitations - Gastrointestinal: No nausea vomiting or diarrhea - Endocrine: No polyuria polydipsia no heat intolerance - Genitourinary: No dysuria - Skin: No new complaints Physical Exam General: Cooperative, healthy appearing, comfortable, no acute distress Orientation: Patient oriented x3 Limitations: None Head: Normal to inspection Ears: Within normal limit visually Nose: Normal external nose present Face and sinus: Normal facial exam, but patient reports occasional red dots on the face, possibly spider veins, not confirmed as rosacea Eyes: Appearance normal, extraocular movement intact pupils reactive Neck: Normal visual inspection and supple Respiratory: Normal respiratory effort and able to speak in complete sentences. Clear to auscultation, no stridor Cardiovascular: S1 and S2 RRR Breast exam through OBGYN as per patient GI: Normal to inspection. Soft to palpation and nontender Skin: Turgor normal, no acute findings, facial rash is difficult to see due to coverage by make up Neuro: Patient oriented x3, motor sensory intact, balance intact, tandem pass Extremities: Normal to inspection [facility] Medical History Major depressive disorder, severe Surgical History No pertinent past surgical history Family History Father Depression Mother History of blood clots Maternal Grandmother No problems noted. Maternal Grandfather Diabetes mellitus CVD (cardiovascular disease) Paternal Grandmother No problems noted. Paternal Grandfather Diabetes mellitus Social History Housing: House Alcohol intake: current Alcohol intake frequency: 0-2 drinks per day Alcohol type: other Patient Tobacco Use Status: Former Tobacco user Years Smoked: 6 years e-Cigarette/Vaping Use: Never Used service: No Current occupational status: employed Current occupation: [employer] Gender identity: Female Cognitive needs: No Hearing needs: No Vision needs: Yes Female Reproductive History Menstrual Age of Menarche: 14 Questionnaire PHQ-9 Over the last 2 weeks, how often have you been bothered by any of the following problems? 1. Little interest or pleasure in doing things: several days 2. Feeling down, depressed, or hopeless: several days 3. Trouble falling or staying asleep, or sleeping too much: several days 4. Feeling tired or having little energy: several days 5. Poor appetite or overeating: not at all 6. Feeling bad about yourself - or that you are a failure or have let yourself or your family down: not at all 7. Trouble concentrating on things, such as reading the newspaper or watching television: several days 8. Moving or speaking so slowly that other people could have noticed. Or the opposite - being so fidgety or restless that you have been moving around a lot more than usual: not at all 9. Thoughts that you would be better off or of hurting yourself in some way: not at all Total score: 5 Depression Screening Interpretation: Negative Depression Screening Done: Yes 58180 - PHQ-9 Billing: Yes Source: Developed by Drs. Bishop Johnson, Kinsey Patel, Jaspreet Garcia and colleagues, with an educational lloyd from [employer]. Thrive Questionnaire Date Thrive assessed: 09/21/24 I am a: Patient What is your living situation today?: I have a steady place to live Within the past 12 months, did the food you bought not last and you didn't have the money to get more?: Never true Within the past 12 months, did you worry whether your food would run out before you got money to buy more?: Never true Do you have trouble paying for medicines?: No Do you have trouble getting transportation to medical appointments?: No Do you have trouble paying your heating and electricity bill?: No Do you have trouble taking care of your child, family member or friend?: No Do you have trouble with day-to-day activities such as bathing, preparing meals, shopping, managing finances, etc.?: No Are you currently unemployed and looking for a job?: No Are you interested in more education?: No Please select the resources that you would like help with: None Currently or been in a relationship where the following occur: No concerns reported THRIVE Score: 0 AUDIT C Alcohol Use Questionnaire (AUDIT-C) 1. How often do you have a drink containing alcohol?: 2-3 times a week 2. How many drinks containing alcohol do you have on a typical day when you are drinking?: 1 or 2 3. How often do you have six or more drinks on one occasion?: Less than monthly Total Score: 4 Score Reviewed/Action Taken: Yes FLORENCIA-7 AMB Questionnaire FLORENCIA-7 Date FLORENCIA - 7 assessed: 09/21/24 Feeling nervous, anxious, or on edge: 2 = More than half the days Not being able to stop or control worryin = Not at all Worrying too much about different things: 1 = Several days Trouble relaxin = Several days Being so restless that it is hard to sit still: 0 = Not at all Becoming easily annoyed or irritable: 0 = Not at all Feeling afraid as if something awful might happen: 0 = Not at all Total FLORENCIA-7 score (0-4 normal; 5-9 mild; 10-14 moderate; 15-21 severe): 4 Source: Developed by Drs. Bishop Johnson, Kinsey Patel, Jaspreet Garcia and colleagues, with an educational lloyd from [employer]. FLORENCIA-7 Assessment Billing FLORENCIA-7 Assessment Tool: FLORENCIA-7 Assessment 91088 Physical exam (Primary Care) Vital Signs: Last Vital Signs Pulse 107 H 09/21/24 12:32 BP 142/96 H 09/21/24 12:32 Pulse Ox 97 09/21/24 12:32 Oxygen Delivery Method Room Air 09/21/24 12:32 BMI result Body Mass Index 22.9 Tobacco/Smoking Status: Tobacco use Status Tobacco use date assessed 09/21/24 09/21/24 12:38 Patient Tobacco Use Status Former Tobacco user 09/21/24 12:38 e-Cigarette/Vaping Use Never Used 09/21/24 12:38 PHQ-9: PHQ-9 Score PHQ-9: Total score 5 09/21/24 12:38 Depression Screening Interpretation: Negative Thrive Assessment: Date of Thrive Assessment Date Thrive assessed 09/21/24 09/21/24 12:38 Currently or been in a relationship where the following occur: No concerns reported Coding Level of Care Code Est Pt Level 3 (16525) Est Pt Prev Care 18-39y(24798) Diagnoses Encounter for general adult medical examination with abnormal findings Z00.01 Facial rash R21 LFT elevation R79.89 Alcoholism F10.20 Anxiety, generalized F41.1 Major depressive disorder, severe F32.2 Additional Codes FLORENCIA-7 Assessment Billing - FLORENCIA-7 Assessment Tool: FLORENCIA-7 Assessment 69095 ([id number]) PHQ-9 - 33594 - PHQ-9 Billing: Yes ([id number]) Assessment & Plan Assessment & Plan (1) Encounter for general adult medical examination with abnormal findings: Code(s): Z00.01 - Encounter for general adult medical examination with abnormal findings Category: Medical (2) Facial rash: Code(s): R21 - Rash and other nonspecific skin eruption Category: Medical (3) LFT elevation: Code(s): R79.89 - Other specified abnormal findings of blood chemistry Category: Medical (4) Alcoholism: Code(s): F10.20 - Alcohol dependence, uncomplicated Category: Medical (5) Anxiety, generalized: Code(s): F41.1 - Generalized anxiety disorder Category: Medical (6) Major depressive disorder, severe: Code(s): F32.2 - Major depressive disorder, single episode, severe without psychotic features Category: Medical Plan Physical exam - The patient is a 33-year-old female presenting with a physical examination and management of anxiety and hypertension. - The patient reports experiencing anxiety, which is worsened at night despite medication. She notes that anxiety can sometimes be triggered by going to places. - Essential hypertension was noted with a blood pressure of 142. The patient acknowledges a level of stress which may be contributing to this. - A history of alcohol use is noted, with a current intake of up to two drinks a day on non-working days. The patient reports a significant reduction in drinking compared to the past. - She has facial concerns involving red dots, for which no itchiness is reported, but concealment with makeup is done due to embarrassment. Health Maintenance - Acknowledgment of the need to repeat laboratory tests, including fasting blood work, which the patient is prepared for during this visit. - Last OB-RESIDENT SERVICES SUPERVISOR visit was in August, suggesting ongoing gynecological monitoring. Medications - Buspirone: Taken for anxiety, dosage includes two tablets in the morning on most days; not taken in the afternoon unless needed. - Lamotrigine: Taken regularly, last prescribed in August. - Lorazepam: Taken for controlling nighttime anxiety; the patient sometimes takes half a dose. - Gemteza: Taken for bladder management. - Omeprazole: Confirmed to have remaining supply; hasn't been recently taken. 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 - Work schedule includes Thursday nights, , and every other weekend. - Reports taking on extra work hours, implying increased workload. Patient Instructions - Proceed to have fasting labs done after completing the visit. - Reduce alcohol consumption further as part of managing blood pressure and anxiety. - Consider seeing a local company flatbed truck driver for facial concerns pending costs and logistics. Medications: Refilled buspirone 10 mg PO TID 30 days PRN 90 tabs 2RF anxiety lorazepam 1 mg PO .qhs 90 days PRN 90 tabs 0RF anxiety/sleep
== END 2024-09-21 13:58 | disposition home or self-care (01) ==
LOC: HO.HMCC 12:30
PROVIDERS: PCP Internal Medicine; Visit Provider Internal Medicine
DX: Z00.01 Encounter for general adult medical examination with abnormal findings (principal); F32.2 Major depressive disorder, single episode, severe without psychotic features; F10.20 Alcohol dependence, uncomplicated; R21 Rash and other nonspecific skin eruption; R79.89 Other specified abnormal findings of blood chemistry; F41.1 Generalized anxiety disorder

== ENCOUNTER 2024-12-21 12:44 | Outpatient (AMB) | payer OTHER, SELFPAY ==
[2024-12-21 12:51] VITALS: BP 130/88; PULSE 114; RESP 16; O2SAT 99; BMI 22.4
--- NOTE | 2024-12-21 12:51 | A.OFFPC_ITS ---
Vital Signs 12/21/24 12:51 Height 5 ft 6 in Weight 139 lb BMI 22.4 BP 130/88 Blood Pressure Location Lt brachial Position Sitting Respiration 16 Pulse 114 H Pulse Source Pulse Oximeter Pulse Oximetry (%) 99 Oxygen Delivery Method Room Air Intake Visit Reasons: 3m follow up Machine Assembler Required: No Accompanied by: Self / Same As Patient Allergies No Known Allergies (No Known Allergies*) Allergy (Verified 12/21/24 12:54) Medication List - Last Reconciled 12/21/24 by Casey Spencer MD buprenorphine-naloxone 8-2 mg 10 mg sublingual DAILY buspirone 10 mg PO TID PRN 30 days lamotrigine 100 mg PO DAILY 90 days lorazepam 1 mg PO .qhs PRN 90 days omeprazole 20 mg PO BID 90 days vibegron (Gemtesa) 75 mg PO DAILY Tobacco use date assessed: 12/21/24 Dental Screening Dental Screen Date: 12/21/24 Did you have a dental visit in the last 12 months?: Yes Did you have a dental problem in the last 6 months where you did not have access to dental care?: No Was dental information given to patient?: Patient has dentist HPI 3m follow up HPI Details History - The patient is a 33-year-old female pr esenting for a regular follow-up appointment. - Reports having a prescription of loraz epam from a previous visit and indicates no need for refills at this time due to having leftover medication. - Reports a fasting blood sugar result o f 123 mg/dL from an September lab test, performed under fasting conditions but acknowledges consuming juice on that morning. - Liver function tests revealed slightly elevated liver enzymes, stable with no change since the previous year. - Reports low vitamin D levels necessita ting supplementation. . - Notes significant improvement in throa t symptoms leading to a decrease in the frequency of omeprazole use. Medical History: - Anxiety treated with lorazepam - Generalized anxiety disorder managed w ith buspirone - History of elevated liver enzymes - Low vitamin D levels Medications: - Lorazepam, occasionally for anxiety - Buspirone 5 mg, 1 tablet twice daily f or anxiety - Lamotrigine 100 mg for mood stabilizat ion - Omeprazole 20 mg, reducing from twice to once daily due to symptom improvement - Vibegron Social History: - Family status: Has a daughter named An gel who is here today Problem List - Generalized Anxiety Disorder - Low Vitamin D - Elevated Liver Enzymes - Prescribed lorazepam, occasionally uti lized - Mood disorder - Bipolar - LFT - facial rash new Patient Instructions - Continue taking vitamin D supplements unless otherwise instructed. - Reduce frequency of omeprazole based o n symptomatic relief. - lorazepam 30 tabs sent - Schedule follow-up labs in four months and next appointment accordingly. - Consider using prescribed cream for fa cial issues, consult pharmacy regarding cost.sent for facial rash Review of Systems - General: No fever no chills - Neurological: No headaches no dizziness - Ear nose throat: No sore throat no hearing difficulty no ear pain - Cardiovascular: No syncope, no chest pain, no palpitations - Gastrointestinal: No nausea vomiting or diarrhea - Endocrine: No polyuria polydipsia no heat intolerance - Genitourinary: No dysuria , no blood in urine Physical Exam General: No acute distress HEENT: No acute findings Neck: Supple Respiratory system: Able to talk in full sentences, no audible wheeze Cardiovascular: S1-S2 regular in rate and rhythm Gastrointestinal: No pain Extremities: No new findings SCREW MACHINE TOOL SETTER: Alert awake oriented x3 motor sensory intact Skin: Normal turgor, rash on checks and chin, erythmatous. look like rosecia Problem List - Generalized Anxiety Disorder - Low Vitamin D - Elevated Liver Enzymes - Prescribed lorazepam, occasionally uti lized Patient Instructions - Continue taking vitamin D supplements unless otherwise instructed. - Reduce frequency of omeprazole based o n symptomatic relief. - Consider cost-effective options for lo razepam. - Schedule follow-up labs in four months and next appointment accordingly. - Consider using prescribed cream for fa cial issues, consult pharmacy regarding cost. Review of Systems - Psychiatric: Reports stable anxiety le vels; denies need for increase in medication - Endocrine: Denies new symptoms; vitami n D deficiency under treatment - Gastrointestinal: Reports improvement in GERD symptoms, reducing omeprazole use - General: No fever no chills - Neurological: No headaches no dizziness - Ear nose throat: No sore throat no hearing difficulty no ear pain - Cardiovascular: No syncope, no chest pain, no palpitations - Gastrointestinal: No nausea vomiting or diarrhea - Endocrine: No polyuria polydipsia no heat intolerance - Genitourinary: No dysuria , no blood in urine Physical Exam General: No acute distress HEENT: No acute findings Neck: Supple Respiratory system: Able to talk in full sentences, no audible wheeze Cardiovascular: S1-S2 regular in rate and rhythm Gastrointestinal: No pain Extremities: No new findings SCREW MACHINE TOOL SETTER: Alert awake oriented x3 motor sensory intact Skin: Normal turgor, but patient mentioned concerns about facial skin, possibly a loose issue. Cream suggested. [facility] Medical History Major depressive disorder, severe Surgical History No pertinent past surgical history Family History Father Depression Mother History of blood clots Maternal Grandmother No problems noted. Maternal Grandfather Diabetes mellitus CVD (cardiovascular disease) Paternal Grandmother No problems noted. Paternal Grandfather Diabetes mellitus Social History Housing: House Alcohol intake: current Alcohol intake frequency: 0-2 drinks per day Alcohol type: other Patient Tobacco Use Status: Former Tobacco user Years Smoked: 6 years e-Cigarette/Vaping Use: Never Used service: No Current occupational status: employed Current occupation: [employer] Gender identity: Female Cognitive needs: No Hearing needs: No Vision needs: Yes Female Reproductive History Menstrual Age of Menarche: 14 Questionnaire Thrive Questionnaire Date Thrive assessed: 09/21/24 I am a: Patient What is your living situation today?: I have a steady place to live Within the past 12 months, did the food you bought not last and you didn't have the money to get more?: Never true Within the past 12 months, did you worry whether your food would run out before you got money to buy more?: Never true Do you have trouble paying for medicines?: No Do you have trouble getting transportation to medical appointments?: No Do you have trouble paying your heating and electricity bill?: No Do you have trouble taking care of your child, family member or friend?: No Do you have trouble with day-to-day activities such as bathing, preparing meals, shopping, managing finances, etc.?: No Are you currently unemployed and looking for a job?: No Are you interested in more education?: No Please select the resources that you would like help with: None Currently or been in a relationship where the following occur: No concerns reported THRIVE Score: 0 FLORENCIA-7 AMB Questionnaire FLORENCIA-7 Date FLORENCIA - 7 assessed: 09/21/24 Source: Developed by Drs. Bishop Johnson, Kinsey Patel, Jaspreet Garcia and colleagues, with an educational lloyd from [employer]. Physical exam (Primary Care) Vital Signs: Last Vital Signs Pulse 114 H 12/21/24 12:51 Resp 16 12/21/24 12:51 BP 130/88 12/21/24 12:51 Pulse Ox 99 12/21/24 12:51 Oxygen Delivery Method Room Air 12/21/24 12:51 BMI result Body Mass Index 22.4 Tobacco/Smoking Status: Tobacco use Status Tobacco use date assessed 12/21/24 12/21/24 12:57 Patient Tobacco Use Status Former Tobacco user 12/21/24 12:57 e-Cigarette/Vaping Use Never Used 12/21/24 12:57 Thrive Assessment: Date of Thrive Assessment Date Thrive assessed 09/21/24 12/21/24 12:57 Currently or been in a relationship where the following occur: No concerns reported Coding Level of Care Code Est Pt Level 4 (62406) Diagnoses Facial rash R21 LFT elevation R79.89 Anxiety, generalized F41.1 Major depressive disorder, severe F32.2 Vitamin D deficiency E55.9 Frequency of urination R35.0 Assessment & Plan Assessment & Plan (1) Facial rash: Code(s): R21 - Rash and other nonspecific skin eruption Category: Medical (2) LFT elevation: Code(s): R79.89 - Other specified abnormal findings of blood chemistry Category: Medical (3) Anxiety, generalized: Code(s): F41.1 - Generalized anxiety disorder Category: Medical (4) Major depressive disorder, severe: Code(s): F32.2 - Major depressive disorder, single episode, severe without psychotic features Category: Medical (5) Vitamin D deficiency: Code(s): E55.9 - Vitamin D deficiency, unspecified Category: Medical (6) Frequency of urination: Code(s): R35.0 - Frequency of micturition Category: Medical Plan History - The patient is a 33-year-old female presenting for a regular follow-up appointment. - Reports having a prescription of lorazepam from a previous visit and indicates no need for refills at this time due to having leftover medication. - Reports a fasting blood sugar result of 123 mg/dL from an September lab test, performed under fasting conditions but acknowledges consuming juice on that morning. - Liver function tests revealed slightly elevated liver enzymes, stable with no change since the previous year. - Reports low vitamin D levels necessitating supplementation. . - Notes significant improvement in throat symptoms leading to a decrease in the frequency of omeprazole use. Medical History: - Anxiety treated with lorazepam - Generalized anxiety disorder managed with buspirone - History of elevated liver enzymes - Low vitamin D levels Medications: - Lorazepam, occasionally for anxiety - Buspirone 5 mg, 1 tablet twice daily for anxiety - Lamotrigine 100 mg for mood stabilization - Omeprazole 20 mg, reducing from twice to once daily due to symptom improvement - Vibegron Social History: - Family status: Has a daughter named Joseph who is here today Problem List - Generalized Anxiety Disorder - Low Vitamin D - Elevated Liver Enzymes - Prescribed lorazepam, occasionally utilized - Mood disorder - Bipolar - LFT - facial rash new Patient Instructions - Continue taking vitamin D supplements unless otherwise instructed. - Reduce frequency of omeprazole based on symptomatic relief. - lorazepam 30 tabs sent - Schedule follow-up labs in four months and next appointment accordingly. - Consider using prescribed cream for facial issues, consult pharmacy regarding cost.sent for facial rash Orders: Orders Complete Blood Count Auto Diff 3 Months F32.2 - Major depressive disorder, single episode, severe without psychotic features, F41.1 - Generalized anxiety disorder, R79.89 - Other specified abnormal findings of blood chemistry Comprehensive Met. Panel 3 Months F32.2 - Major depressive disorder, single episode, severe without psychotic features, F41.1 - Generalized anxiety disorder, R79.89 - Other specified abnormal findings of blood chemistry Medications: New clindamycin phosphate 1% 1 appl topical BEDTIME 60 grams 0RF facial rash Changed From lorazepam 1 mg PO .qhs 90 days PRN 90 tabs 0RF anxiety/sleep To lorazepam 1 mg PO .qhs PRN 30 tabs 0RF anxiety/sleep 30 days
== END 2024-12-21 13:08 | disposition home or self-care (01) ==
LOC: HO.HMCC 12:46
PROVIDERS: PCP Internal Medicine; Visit Provider Internal Medicine
DX: R21 Rash and other nonspecific skin eruption (principal); R79.89 Other specified abnormal findings of blood chemistry; F41.1 Generalized anxiety disorder; F32.2 Major depressive disorder, single episode, severe without psychotic features; E55.9 Vitamin D deficiency, unspecified; R35.0 Frequency of micturition

== ENCOUNTER 2025-04-26 10:37 | Outpatient (AMB) | payer OTHER, SELFPAY ==
[2025-04-26 10:49] VITALS: BP 122/80; PULSE 111; TEMP 37.1; O2SAT 98; BMI 21.6
--- NOTE | 2025-04-26 10:49 | A.OFFPC_ITS ---
Vital Signs 04/26/25 10:49 Height 5 ft 6 in Weight 134 lb BMI 21.6 BP 122/80 Blood Pressure Location Lt brachial Position Sitting Pulse 111 H Pulse Source Pulse Oximeter Temp 98.8 F Temp Source Oral Pulse Oximetry (%) 98 Oxygen Delivery Method Room Air Intake Visit Reasons: 4 months f/up Allergies diphenhydramine (From Benadryl) Adverse Reaction (Intermediate, Verified 04/26/25 11:15) restlessness Medication List - Last Reconciled 04/26/25 by Casey Spencer MD buspirone 10 mg PO TID PRN 30 days clindamycin phosphate 1% 1 appl topical BEDTIME lamotrigine 100 mg PO DAILY 90 days lorazepam 1 mg PO .qhs PRN 30 days omeprazole 20 mg PO BID 90 days vibegron (Gemtesa) 75 mg PO DAILY Tobacco use date assessed: 12/21/24 Dental Screening Dental Screen Date: 12/21/24 HPI HPI Comments History of Present Illness Details History of Present Illness The patient is a 34-year-old female presenting for medication management, acute sore throat, and symptoms related to recent cessation of Suboxone. Opioid Withdrawal: - The patient reports she stopped taking Suboxone 5 days ago. - She self-tapered from 8 mg over a thre e-week period. - Since stopping, she has been feeling shitty and experiencing hot and cold chills and severe restlessness. - Due to restlessness, she has been taki ng lorazepam more frequently to help her sleep over the last three nights. Acute Pharyngitis: - The patient complains of a sore and sw ollen throat. - The patient also reports symptoms of a cold, which she believes she contracted from her children who were sick last week. Anxiety Disorder: - The patient is prescribed buspirone up to three times a day and has recently been taking it at that frequency. - She is also prescribed lorazepam, whic h she is currently using for sleep and restlessness associated with Suboxone withdrawal. Medical History: - Opioid use disorder, previously on Sub oxone - Anxiety - Insomnia - Mood disorder, on lamotrigine - Overactive bladder, managed by urology - Adverse reaction to diphenhydramine (B enadryl), causing restlessness Social History: - Substance Use History: The patient rep orts she recently stopped taking Suboxone after tapering herself off. - Family Composition: The patient has a son and a daughter. Diagnostic Results: - Rapid Strep Test: Negative. [facility] Medical History Major depressive disorder, severe Surgical History No pertinent past surgical history Family History Father Depression Mother History of blood clots Maternal Grandmother No problems noted. Maternal Grandfather Diabetes mellitus CVD (cardiovascular disease) Paternal Grandmother No problems noted. Paternal Grandfather Diabetes mellitus Social History Housing: House Alcohol intake: current Alcohol intake frequency: 0-2 drinks per day Alcohol type: other Patient Tobacco Use Status: Former Tobacco user Years Smoked: 6 years e-Cigarette/Vaping Use: Never Used service: No Current occupational status: employed Current occupation: [employer] Gender identity: Female Cognitive needs: No Hearing needs: No Vision needs: Yes Female Reproductive History Menstrual Age of Menarche: 14 Questionnaire Thrive Questionnaire Date Thrive assessed: 09/21/24 I am a: Patient What is your living situation today?: I have a steady place to live Within the past 12 months, did the food you bought not last and you didn't have the money to get more?: Never true Within the past 12 months, did you worry whether your food would run out before you got money to buy more?: Never true Do you have trouble paying for medicines?: No Do you have trouble getting transportation to medical appointments?: No Do you have trouble paying your heating and electricity bill?: No Do you have trouble taking care of your child, family member or friend?: No Do you have trouble with day-to-day activities such as bathing, preparing meals, shopping, managing finances, etc.?: No Are you currently unemployed and looking for a job?: No Are you interested in more education?: No Please select the resources that you would like help with: None Currently or been in a relationship where the following occur: No concerns reported THRIVE Score: 0 FLORENCIA-7 AMB Questionnaire FLORENCIA-7 Date FLORENCIA - 7 assessed: 09/21/24 Source: Developed by Drs. Bishop Johnson, Kinsey Patel, Jaspreet Garcia and colleagues, with an educational lloyd from [employer]. Review of Systems Narrative Review of Systems - Neurological: No headaches no dizziness - Ear nose throat: no hearing difficulty no ear pain - Cardiovascular: No syncope, no chest pain, no palpitations - Gastrointestinal: No nausea vomiting or diarrhea - Endocrine: No polyuria polydipsia no heat intolerance - Genitourinary: No dysuria , no blood in urine Physical exam (Primary Care) Vital Signs: Last Vital Signs Temp 98.8 F 04/26/25 10:49 Pulse 111 H 04/26/25 10:49 BP 122/80 04/26/25 10:49 Pulse Ox 98 04/26/25 10:49 Oxygen Delivery Method Room Air 04/26/25 10:49 BMI result Body Mass Index 21.6 Tobacco/Smoking Status: Tobacco use Status Tobacco use date assessed 12/21/24 04/26/25 10:54 Patient Tobacco Use Status Former Tobacco user 04/26/25 10:54 e-Cigarette/Vaping Use Never Used 04/26/25 10:54 Thrive Assessment: Date of Thrive Assessment Date Thrive assessed 09/21/24 04/26/25 10:54 Currently or been in a relationship where the following occur: No concerns repor ronan Narrative Physical Exam General: No acute distress HEENT: Throat is red, no white patches, uvula midline Neck: Supple Respiratory system: Able to talk in full sentences, no audible wheeze Cardiovascular: S1-S2 regular in rate and rhythm Gastrointestinal: No pain Extremities: No new findings FLIGHT MECHANIC: Alert awake oriented x3 motor intact Skin: Normal turgor Results AMB Rapid Strep AMB Rapid Strep Negative Last Edit by Branden Dejesus CMA on 04/26/25 11 :13 Coding Level of Care Code Est Pt Level 4 (22652) Diagnoses Anxiety, generalized F41.1 Major depressive disorder, severe F32.2 Vitamin D deficiency E55.9 Acute pharyngitis, unspecified etiology J02.9 Pharyngitis/tonsillitis etiology: unspecified etiology Chills R68.83 Acute generalized body pain R52 Assessment & Plan Assessment & Plan (1) Anxiety, generalized: Code(s): F41.1 - Generalized anxiety disorder Category: Medical (2) Major depressive disorder, severe: Code(s): F32.2 - Major depressive disorder, single episode, severe without psychotic features Category: Medical (3) Vitamin D deficiency: Code(s): E55.9 - Vitamin D deficiency, unspecified Category: Medical (4) Acute pharyngitis: Code(s): J02.9 - Acute pharyngitis, unspecified Category: Medical Qualifiers: Pharyngitis/tonsillitis etiology: unspecified etiology Qualified Code(s): J02.9 - Acute pharyngitis, unspecified (5) Chills: Code(s): R68.83 - Chills (without fever) Category: Medical (6) Acute generalized body pain: Code(s): R52 - Pain, unspecified Category: Medical Plan Problem List - Acute pharyngitis - Opioid withdrawal - Anxiety disorder - Insomnia - Overactive bladder Plan - A rapid strep test will be performed for the patient's sore throat, which was subsequently found to be negative. - For pharyngitis symptoms, the patient was advised supportive care including increasing fluid intake, using Tylenol as needed for body aches, and increasing dietary vitamin C. - A refill for lorazepam will be sent, with reassurance that it is acceptable to take more for a few days to manage withdrawal symptoms. - A refill for lamotrigine will be sent. - The patient was advised to continue taking buspirone up to three times daily as needed. - The patient should avoid cough syrups containing diphenhydramine due to her paradoxical reaction of restlessness. Orders: Orders AMB Rapid Strep Screen Today Z13.9 - Encounter for screening, unspecified Medications: Refilled buspirone 10 mg PO TID PRN 90 tabs 2RF anxiety 30 days lorazepam 1 mg PO .qhs PRN 30 tabs 1RF anxiety/sleep 30 days F41.1 - Generalized anxiety disorder lamotrigine 100 mg PO DAILY 90 tabs 0RF 90 days
== END 2025-04-26 12:12 | disposition home or self-care (01) ==
LOC: HO.HMCC 10:38
PROVIDERS: PCP Internal Medicine; Visit Provider Internal Medicine
DX: F41.1 Generalized anxiety disorder (principal); F32.2 Major depressive disorder, single episode, severe without psychotic features; E55.9 Vitamin D deficiency, unspecified; J02.9 Acute pharyngitis, unspecified; R68.83 Chills (without fever); R52 Pain, unspecified; Z13.9 Encounter for screening, unspecified

== ENCOUNTER → 2025-04-26 10:37 | Outpatient (BNVA) | payer OTHER, SELFPAY | PROVIDERS: PCP Internal Medicine; Visit Provider Internal Medicine | DX: F41.1 Generalized anxiety disorder (principal); F32.2 Major depressive disorder, single episode, severe without psychotic features; E55.9 Vitamin D deficiency, unspecified; J02.9 Acute pharyngitis, unspecified; R68.83 Chills (without fever); R52 Pain, unspecified | CPT/HCPCS: 87880 ==